=== PATIENT | male | born 1950 | race Two or more races ===

== ENCOUNTER 2018-07-30 06:04 | Day surgery (SDC) | payer MEDICARE ==
[~2018-07-30] VITALS: Ht 160 cm; Wt 66.2 kg
[~2018-07-30 06:04] MED LIST: AMLO5TAB7 PO; BACITRACIN 50,000 UNIT in IV NORMAL SALINE 500ML BAG 500 ML IRR ONE; BUPIVACAINE-EPI 0.5%-1:200000 50 ML VIAL. ONE; LOSA25TA5 PO
[2018-07-30] MEDS ORDERED: PROPOFOL 20 ML IV ONE (06:51)
[2018-07-30] MEDS ORDERED: fentaNYL PF VIAL 100 MCG/2 ML VIAL ONE ×3 (06:51→09:51)
[2018-07-30] MEDS ORDERED: PROCHLORPERAZINE 10 MG/2 ML VIAL. IV PRN (07:00)
[2018-07-30] MEDS ORDERED: IV RINGERS,LACTATED 1000ML 1,000 ML IV SCH (07:00)
[2018-07-30] MEDS ORDERED: MORPHINE SULFATE 2 MG/ML VIAL. IV PRN (07:00)
[2018-07-30] MEDS ORDERED: LIDOCAINE 1% PF 2 ML VIAL. ID PRN (07:00)
[2018-07-30] MEDS ORDERED: HYDROmorphone 2 MG/ML VIAL IV PRN (07:00)
[2018-07-30] MEDS ORDERED: fentaNYL PF VIAL 100 MCG/2 ML VIAL IV PRN (07:00)
[2018-07-30] MEDS ORDERED: ONDANSETRON PF 4 MG/2 ML VIAL. IV PRN (07:00)
[2018-07-30] MEDS ORDERED: SEVOFLURANE 31 TO 60 MINUTES. IH ONE (08:02)
[2018-07-30] MEDS ORDERED: DEXAMETHASONE SOD PHOS 20 MG/5 ML VIAL. ONE (08:02)
[2018-07-30] MEDS ORDERED: ONDANSETRON PF 4 MG/2 ML VIAL. ONE (08:04)
[2018-07-30] MEDS ORDERED: KETOROLAC 30 MG/ML INJ FOR OR. INJ ONE (09:14)
--- NOTE | 2018-07-30 09:50 | DISCH ---
DISCHARGE INSTRUCTIONS Condition on Discharge Condition on Discharge: Stable Activity After Discharge Activity Instructions for Disc: Other, see below (no lifting over 20 lbs X 4 weeks, no strenuous activity) Diet after Discharge Diet after Discharge: Regular Wound Incision Care Wound/Incision Care: Other, see below (keep dressing clean and dry X 72 hours, may then remove and shower) Follow-Up Follow up with: Dr Champagne in 2 weeks in office, call for appt [phone] BECCA CHAMPAGNE MD Jul 30, 2018 09:50
[2018-07-30] MEDS ORDERED: HYDR-971 PO (09:54)
--- NOTE | 2018-07-30 09:55 | PDOC4 ---
Operative Note Operative Note Operative Note: Preoperative Diagnosis: Right inguinal hernia Postoperative Diagnosis: Same Procedure: Right inguinal hernia repair with mesh Surgeon: Olman Anesthesia: Gen. EBL: 10 mL Specimen: Hernia sac Drains: None Complications: None Indication: The patient is a 68-year-old male who was referred due to a reducible right inguinal hernia. He was offered surgical repair with use of mesh. The details and risks of surgery were discussed. The risks include bleeding, infection, recurrence, pain, anesthetic risk, potential need for additional surgery or procedure. He understands and would like to proceed. Description: The patient was taken the operating room and placed supine on the operating table. Gen. anesthesia was performed. The right groin was shaved and prepped with ChloraPrep and draped in a standard surgical manner. An incision was made in the skin lines of the right groin with a scalpel. Cautery dissection was carried to the external oblique aponeurosis. The aponeurosis was opened down to the external ring. The contents of the inguinal canal were digitally mobilized and encircled with a Starr drain. The patient had a large indirect hernia sac. The sac was mobilized from the surrounding cord structures. The vas deferens and other cord structures were identified and preserved. The hernia sac was fully freed down to its base. I did elect to excise most of the redundant sac and it was suture ligated near its neck. The excised hernia sac was sent as a specimen. The neck of the sac was inverted and the defect filled with a large Phasix plug. The plug was sutured into position with 2-0 Vicryl. The entire inguinal floor was then reinforced with a keyhole Prolene mesh patch. The mesh was trimmed and tailored to provide full coverage of the inguinal floor. The mesh was sutured into position with interrupted 2-0 Vicryl's securing it to the internal oblique muscle superiorly and the shelving edge of the inguinal ligament inferiorly. The cord structures passed between the tail of the mesh. The external oblique was then closed over the mesh with a running 2-0 Vicryl. Subcutaneous tissue was closed with 3-0 Vicryl sutures. The skin was approximated with 4-0 Monocryl. Incision was infiltrated with quarter percent Marcaine with epinephrine. Steri-Strips and a sterile dressing were applied. The patient tolerated the procedure well and was sent to the recovery room in stable condition area at the end of the case all counts were correct. BECCA CHAMPAGNE MD Jul 30, 2018 09:55
[2018-07-30] MEDS: fentaNYL PF VIAL 100 MCG/2 ML VIAL IV PRN ×2 (09:57→10:04)
[2018-07-30] MEDS ORDERED: HYDROcodone/APAP 5/325MG 1 TAB TABLET PO ONE (10:00)
[2018-07-30 10:45] VITALS: BP 160/83
--- NOTE | 2018-08-01 16:09 | PATHOLOGY ---
[facility] Accession Number: [id number] . 01 Material submitted: . HERNIA SAC . 01 Clinician provided ICD-10: K40.90 . 01 Clinical history: . Right inguinal hernia . 02 Diagnosis: "Hernia sac", herniorrhaphy: - Hernia sac. (SKM:marium; 08/01/2018) QMS/08/01/2018 . 02 Electronically signed: . Vipin Brito MD, Pathologist NPI- [id number] . 01 Gross description: . The specimen is received in formalin, labeled "Alexis Pulido and hernia sac", is a disrupted suarez-white to red-pink, hemorrhagic, membranous tissue, 7.5 x 4.5 cm with an average 0.1 cm wall. No discrete nodules are masses identified. Denier Control Operator section is submitted in A1. ([facility]; 07/30/2018) SHS/SHS . 02 Pathologist provided ICD-10: K40.90 . 02 CPT . 624290 Specimen Comment: A courtesy copy of this report has been sent to Specimen Comment: [phone], . Specimen Comment: Report sent to and Performed at: 01 [facility] [address], [place], [place] [id number] MD Dakota Mccarty MD Phone: [phone] Performed at: 02 [facility] [address] [place], [place] [id number] MD Dequan Miller MD Phone: [phone]
== END 2018-07-30 11:20 | disposition home or self-care (01) ==
LOC: SURG 06:04
PROVIDERS: ATTEND Surgery
DX: K40.90 Unilateral inguinal hernia, without obstruction or gangrene, not specified as recurrent (principal); I10 Essential (primary) hypertension; Z72.89 Other problems related to lifestyle; Z79.899 Other long term (current) drug therapy
CPT/HCPCS: 49505; 88302; A7015; C1781; J0690; J1100; J1885; J2405; J2704; J3010; J7120; J3490; J7040

== ENCOUNTER → 2019-10-07 | Day surgery (SDC) | payer MEDICARE, MEDICAID ==
[~2019-10-07] MED LIST changes: +AMLO5TAB10 PO; -AMLO5TAB7 PO; +APIX5TAB PO; +ATOR20TA58 PO; -BACITRACIN 50,000 UNIT in IV NORMAL SALINE 500ML BAG 500 ML IRR ONE; -BUPIVACAINE-EPI 0.5%-1:200000 50 ML VIAL. ONE; +HYDR-3164 PO; +IV RINGERS,LACTATED 1000ML 1,000 ML IV ONE; +LIDOCAINE 2% PF 5 ML VIAL. ONE; -LOSA25TA5 PO; +LOSA25TA54 PO; +METO25TA4 PO; +PROPOFOL 40 ML IV ONE
--- NOTE | 2019-10-07 09:29 | EKG ---
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
[2019-10-07 09:40] VITALS: BP 137/76
== END ==
LOC: ENDOS 07:38
PROVIDERS: ATTEND Internal Medicine Gastroenterology
DX: R19.5 Other fecal abnormalities (principal); K64.0 First degree hemorrhoids; I10 Essential (primary) hypertension; E78.00 Pure hypercholesterolemia, unspecified; F15.90 Other stimulant use, unspecified, uncomplicated; Z87.891 Personal history of nicotine dependence; Z72.89 Other problems related to lifestyle
CPT/HCPCS: 45378; J2001; J2704; 93005

== ENCOUNTER → 2019-12-09 | Outpatient (CLI) | payer MEDICARE, MEDICAID ==
[2019-10-08 15:00] VITALS: BP 115/78
[~2019-12-09] MED LIST changes: -IV RINGERS,LACTATED 1000ML 1,000 ML IV ONE; -LIDOCAINE 2% PF 5 ML VIAL. ONE; -PROPOFOL 40 ML IV ONE; +REGADENOSON 0.4 MG/5 ML DISP.SYRIN. IV ONE
--- NOTE | 2019-12-09 11:55 | RAD ---
MR#: [id number] Date of Study: 12/09/2019 Ordering Physician: ILEANA OWEN Referring Physician: TONYA VAZQUEZ Tech: RT Ray Veliz) (N) APPROVED REPORT Test Type: Pharmacological Stress Nurse/Tech: Rupa Lackey RN Test Indications: Atrial Fibrillation Cardiac History: Hypertension, Afib Medications: See Electronic Medical Record Medical History: See Electronic Medical Record Resting ECG: Afib Resting Heart Rate: 68 bpm Resting Blood Pressure: 150/76mmHg Pretest Chest Pain: No chest pain Nurse/Tech Notes S1S2, Lungs CTA Consent: The procedure was explained to the patient in lay terms. Informed consent was witnessed. Mark eout was entered into [employer]. History and Stress Test performed by RT Ray Veliz) (N) Pharm. Details Pharmacologic stress testing was performed using 0.4mg per 5ml of regadenoson given intravenously ove r 7-10 seconds. Stress Symptoms Dyspnea POST EXERCISE Reason for Termination: Infusion complete Max HR: 94 bpm Max Blood Pressure: 138/75mmHg Blood Pressure response to exercise: Normal blood pressure response during stress. Heart Rate response to exercise: WNL Chest Pain: No. Arrhythmia: No. ST Change: No. INTERPRETATION Stress EKG Conclusion: Baseline EKG showed atrial fibrillation. No ischemic changes at peak stress. No other arrhythmias. Imaging Protocol IMAGE PROTOCOL: Rest Tc-99m/stress Tc-99m 1 day Rest: Stress: Viability: Radiopharm.Tc99m SbtwhfagyFk06x Sestamibi Dose10.2mCi 33mCi Duration 15min. 10min. Img Date 12/09/2019 12/09/2019 Inj-Img [id number]. 60min. Rest Admin Site:IV - Left AntecubitalAdministrator:RT Ray Veliz)(N) Stress Admin Site: IV - Left AntecubitalAdministrator: RT Ray Veliz)(N) STRESS DATA End Diast. Vol.92.0mlAv. Heart Rate74.0bpm End Syst. Vol.24.0mlCO Index BSA0.0L/min Myocardial Soeu350.0gEject. Gmssufaz59.0% Stress Rates Pk. Fill Rate3.66EDV/secLVtime Pk. Fill 230.67msec Pk. Empty Rate4.50ESV/secLVtime Pk. Vzfki032.99msec /3 Pk. Fill1.54EDV/sec Stress Scores Regional WT0.00Summed WT1.00 Regional WM0.00Summed WM0.00 Study quality was good. Left Ventricular size was Normal at Rest and Stress. Lung uptake was . Left Ventricular ejection fraction is 74%. The rest and stress images show normal perfusion, normal contraction and thickening. LV Perf. Quant 17 Seg. SSS0.00 17 Seg. SRS1.00 17 Seg. SDS0.00 Stress Defect Extent (% LAD)0.00Rest Defect Extent (% LAD)13.80Rev. Defect Extent (% LAD)0.00 Stress Defect Extent (% LCX) 0.00Rest Defect Extent (% LCX)0.00Rev. Defect Extent (% LCX)0.00 Stress Defect Extent (% RCA)0.00Rest Defect Extent (% RCA)0.00Rev. Defect Extent (% RCA)0.00 Stress Defect Extent (% YESSICA)0.00Rest Defect Extent (% YESSICA)4.80Rev. Defect Extent (% YESSICA)0.00 Conclusion 1. Regadenoson cardioisotope stress test did not show any evidence of ischemia or infarct. 2. Normal left ventricular systolic function with ejection fraction calculated at 74%. 3. Low risk for cardiac events. Signed by : Ileana Owen, Electronically Approved : 12/09/2019 11:54:32
== END | disposition home or self-care (01) ==
LOC: NM 08:20
PROVIDERS: ATTEND Internal Medicine Cardiovascular Disease
DX: I48.19 Other persistent atrial fibrillation (principal); I10 Essential (primary) hypertension
CPT/HCPCS: 78452; 93017; A9500; J2785

== ENCOUNTER → 2020-04-22 | Outpatient (CLI) | payer MEDICARE, MEDICAID ==
[2019-10-08 15:00] VITALS: BP 115/78
[~2020-04-22] MED LIST changes: -REGADENOSON 0.4 MG/5 ML DISP.SYRIN. IV ONE
== END ==
LOC: SURGPAT 14:48
PROVIDERS: ATTEND Internal Medicine Cardiovascular Disease
DX: Z01.818 Encounter for other preprocedural examination (principal); Z11.59 Encounter for screening for other viral diseases; I48.91 Unspecified atrial fibrillation
CPT/HCPCS: 36415; U0003

== ENCOUNTER 2020-04-27 09:49 | Day surgery (SDC) | payer MEDICARE, MEDICAID ==
[~2020-04-27 09:49] MED LIST changes: +HYDROmorphone 2 MG/ML VIAL IVP PRN; +IV RINGERS,LACTATED 1000ML 1,000 ML IV SCH; +LIDOCAINE 1% PF 2 ML VIAL. ID PRN; +MORPHINE SULFATE 2 MG/ML VIAL. IVP PRN; +ONDANSETRON PF 4 MG/2 ML VIAL. IVP PRN; +PROCHLORPERAZINE 10 MG/2 ML VIAL. IVP PRN; +fentaNYL PF VIAL 100 MCG/2 ML VIAL IVP PRN
[2020-04-27] MEDS ORDERED: BENZOCAINE ONE 20% MUCOSAL SPRAY. (09:50)
[2020-04-27] MEDS ORDERED: LIDOCAINE 2% TOPICAL JELLY 30GM TUBE. TP ONE ×2 (09:50→10:00)
[2020-04-27] MEDS ORDERED: LIDOCAINE 2% VISCOUS 15 ML SOLUTION. SWSW ONE (10:00)
[2020-04-27] MEDS ORDERED: BENZOCAINE ONE 20% MUCOSAL SPRAY. MM (10:00)
--- NOTE | 2020-04-27 10:17 | EKG ---
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 NONSPECIFIC ST-T WAVE CHANGES. Electronically Signed On 04-29-2020 16:25:16 CDT by Jose David Parker
[2020-04-27 10:29] LABS: BASO # 0.1 x10^3/uL (0.0-0.2); BASO % 1 % (0-3); EOS # 0.2 x10^3/uL (0.0-0.7); EOS % 4 % (0-3); HEMATOCRIT 42.4 % (39.0-53.0); HEMOGLOBIN 14.5 g/dL (13.0-17.5); LYMPH # 1.7 x10^3/uL (1.0-4.8); LYMPH % 38 % (24-48); MEAN CORPUSCULAR HEMOGLOBIN 31 pg (25-35); MEAN CORPUSCULAR HGB CONC 34 g/dL (31-37); MEAN CORPUSCULAR VOLUME 90 fL (79-100); MONO # 0.4 x10^3/uL (0.0-1.1); MONO % 9 % (0-9); NEUT # 2.2 x10^3/uL (1.8-7.7); NEUT % 49 % (31-73); PLATELET COUNT 261 x10^3/uL (140-400); RED BLOOD COUNT 4.72 x10^6/uL (4.30-5.70); RED CELL DISTRIBUTION WIDTH 13.8 % (11.5-14.5); WHITE BLOOD COUNT 4.6 x10^3/uL (4.0-11.0)
[2020-04-27 10:33] LABS: CALCIUM 8.8 mg/dL (8.5-10.1); CREATININE 1.1 mg/dL (0.7-1.3); GFR 66.4; POTASSIUM 4.3 mmol/L (3.5-5.1)
[2020-04-27 10:37] LABS: PROTHROMBIN TIME PATIENT 14.6 SEC (11.7-14.0)
--- NOTE | 2020-04-27 11:27 | EKG ---
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
[2020-04-27 11:40] VITALS: BP 127/73
--- NOTE | 2020-04-27 17:07 | PDOC4 ---
Procedure Note Procedure: External cardioversion Indications: Atrial fibrillation Complications: None Procedural Details: And informed consent was obtained from patient. Anesthesiology team administered intravenous propofol for deep sedation. Patient was then given 200 J of synchronized biphasic DC current with successful conversion of rhythm from atrial fibrillation to sinus rhythm. He was hemodynamically stable without any neurological deficits at the end of procedure. He tolerated the procedure well. Conclusions: Successful cardioversion of atrial fibrillation to sinus rhythm ILEANA OWEN MD Apr 27, 2020 17:07
== END 2020-04-27 11:49 | disposition home or self-care (01) ==
LOC: SURG 09:49
PROVIDERS: ATTEND Internal Medicine Cardiovascular Disease
DX: I48.91 Unspecified atrial fibrillation (principal)
CPT/HCPCS: 36415; 80048; 85025; 85610; 92960; 93005

== ENCOUNTER 2020-04-29 20:33 | Inpatient (IN) | payer MEDICARE, MEDICAID ==
[~2020-04-29] VITALS: Ht 167.6 cm; Wt 95.0 kg
[~2020-04-29 20:33] MED LIST changes: -HYDROmorphone 2 MG/ML VIAL IVP PRN; -IV RINGERS,LACTATED 1000ML 1,000 ML IV SCH; -LIDOCAINE 1% PF 2 ML VIAL. ID PRN; -MORPHINE SULFATE 2 MG/ML VIAL. IVP PRN; -ONDANSETRON PF 4 MG/2 ML VIAL. IVP PRN; -PROCHLORPERAZINE 10 MG/2 ML VIAL. IVP PRN; -fentaNYL PF VIAL 100 MCG/2 ML VIAL IVP PRN
[2020-04-29 20:54] LABS: BASO # 0.1 x10^3/uL (0.0-0.2); BASO % 1 % (0-3); EOS # 0.1 x10^3/uL (0.0-0.7); EOS % 2 % (0-3); HEMATOCRIT 40.7 % (39.0-53.0); LYMPH % 34 % (24-48); MEAN CORPUSCULAR HEMOGLOBIN 30 pg (25-35); MEAN CORPUSCULAR HGB CONC 34 g/dL (31-37); MEAN CORPUSCULAR VOLUME 89 fL (79-100); MONO # 0.6 x10^3/uL (0.0-1.1); MONO % 10 % (0-9); NEUT # 3.2 x10^3/uL (1.8-7.7); NEUT % 53 % (31-73); PLATELET COUNT 270 x10^3/uL (140-400); RED BLOOD COUNT 4.59 x10^6/uL (4.30-5.70); RED CELL DISTRIBUTION WIDTH 13.4 % (11.5-14.5)
[2020-04-29 21:04] LABS: CALCIUM 8.7 mg/dL (8.5-10.1); CREATININE 1.2 mg/dL (0.7-1.3); POTASSIUM 4.1 mmol/L (3.5-5.1)
[2020-04-29 21:10] LABS: ALBUMIN 3.9 g/dL (3.4-5.0); ALBUMIN/GLOBULIN RATIO 1.1 (1.0-1.7); MAGNESIUM 2.1 mg/dL (1.8-2.4); TOTAL BILIRUBIN 0.5 mg/dL (0.2-1.0); TOTAL PROTEIN 7.4 g/dL (6.4-8.2)
[2020-04-29 21:28] LABS: BILIRUBIN,URINE NEGATIVE (NEG); CLARITY,URINE CLEAR; COLOR,URINE YELLOW; NITRITE,URINE NEGATIVE (NEG); PH,URINE 6.5 (<5.0-8.0); PROTEIN,URINE NEGATIVE (NEG-TRACE)
[2020-04-29 21:34] LABS: BACTERIA,URINE 0 /HPF (0-FEW); WBC,URINE 0 /HPF (0-4)
--- NOTE | 2020-04-29 21:35 | RAD ---
Exam: Chest one view INDICATION: Dizziness TECHNIQUE: Frontal view of the chest Comparisons: None FINDINGS: The cardiomediastinal silhouette and pulmonary vessels are within normal limits. The lung and pleural spaces are clear. IMPRESSION: No acute cardiopulmonary process. Electronically signed by: Courtney Chau MD (04/29/2020 9:32 PM) [id number]
--- NOTE | 2020-04-29 21:46 | RAD ---
Exam: CT head INDICATION: Ataxic gait, left-sided weakness TECHNIQUE: Sequential axial images through the head were obtained without the administration of IV contrast. Comparisons: None FINDINGS: No focal parenchymal lesion or hemorrhage is identified. There is no midline shift or sulcal effacement. No acute vascular territory infarction is identified. Haas-white distinction is preserved. The ventricular system is within normal limits without compression hydrocephalus. The basal cisterns are well maintained. The visualized portions of the paranasal sinuses and mastoid air cells are well-pneumatized. No acute fractures. IMPRESSION: No acute intracranial abnormality. Exposure: One or more of the following in the visualized dose reduction techniques were utilized for this examination: 1. Automated exposure control 2. Adjustment of the MA and/or KV according to patient size Use of iterative of reconstructive technique Electronically signed by: Courtney Chau MD (04/29/2020 9:43 PM) [id number]
[2020-04-29] MEDS ORDERED: IOHEXOL 350 MG/ML 100 ML VIAL. IV ONE (22:30)
[2020-04-29] MEDS ORDERED: CONTRAST GIVEN. MC PRN (22:30)
--- NOTE | 2020-04-29 22:30 | PHYS DOC ---
Past Medical History Past Medical History: A-Fib, High Cholesterol, Hypertension Past Surgical History: Other Additional Past Surgical Histo: hernia Smoking Status: Never Smoker Alcohol Use: Occasionally Drug Use: None General Adult EDM: Chief Complaint: WEAKNESS/GENERALIZED HPI: HPI: Patient is a 70 year old male with reported left leg weakness that started at about 3 PM today. [facility] and was discharged home at about noon. Patient was seen there for shortness of breath and headache. Patient continues to complain of headache that he rates at a 4 out of 10. Patient also indicates that he has tingling in his left arm and leg. He denies any chest pain or shortness of breath. Patient has no speech deficits. [] Review of Systems: Review of Systems: Constitutional: Denies fever or chills. [] Respiratory: Denies cough or shortness of breath. [] Cardiovascular: Denies chest pain or edema. [] Integument: Denies rash. [] Neurologic: Denies headache but complains of weakness in the left leg. [] Heart Score: Risk Factors: Risk Factors: DM, Current or recent (<one month) smoker, HTN, HLP, family history of CAD, obesity. Risk Scores: Score 0 - 3: 2.5% MACE over next 6 weeks - Discharge Home Score 4 - 6: 20.3% MACE over next 6 weeks - Admit for Clinical Observation Score 7 - 10: 72.7% MACE over next 6 weeks - Early Invasive Strategies Current Medications: Current Medications Medications (Trade) Dose Ordered Sig/Michelle Start Time Stop Time Status Last Admin Dose Admin Info (CONTRAST GIVEN -- Rx MONITORING) 1 each PRN DAILY PRN 04/29/20 22:30 05/01/20 22:29 Iohexol (Omnipaque 350 Mg/ml) 70 ml 1X ONCE 04/29/20 22:30 04/29/20 22:31 04/29/20 22:23 70 ML Allergies: Allergies: Allergies Coded Allergies Type Severity Reaction Last Updated Verified No Known Drug Allergies 04/27/20 No Physical Exam: PE: Constitutional: Well developed, well nourished, no acute distress, non-toxic appearance. [] HENT: Normocephalic, atraumatic, bilateral external ears normal, oropharynx moist, no oral exudates, nose normal. [] Eyes: PERRLA, EOMI, conjunctiva normal, no discharge. [] Neck: Normal range of motion, no tenderness, supple, no stridor. [] Cardiovascular: Regular rate and rhythm [] Lungs & Thorax: Bilateral breath sounds clear to auscultation [] Abdomen: Bowel sounds normal, soft, no tenderness. [] Skin: Warm, dry, no erythema, no rash. [] Extremities: No tenderness, no cyanosis, no clubbing, ROM intact, no edema. [] Neurologic: Alert and oriented X 3, normal motor function, with mild sensory loss in left arm and leg. [] Current Patient Data: Labs: Laboratory Tests Test 04/29/20 20:45 04/29/20 21:20 White Blood Count 6.0 x10^3/uL (4.0-11.0) Red Blood Count 4.59 x10^6/uL (4.30-5.70) Hemoglobin 14.0 g/dL (13.0-17.5) Hematocrit 40.7 % (39.0-53.0) Mean Corpuscular Volume 89 fL (79-100) Mean Corpuscular Hemoglobin 30 pg (25-35) Mean Corpuscular Hemoglobin Concent 34 g/dL (31-37) Red Cell Distribution Width 13.4 % (11.5-14.5) Platelet Count 270 x10^3/uL (140-400) Neutrophils (%) (Auto) 53 % (31-73) Lymphocytes (%) (Auto) 34 % (24-48) Monocytes (%) (Auto) 10 % (0-9) H Eosinophils (%) (Auto) 2 % (0-3) Basophils (%) (Auto) 1 % (0-3) Neutrophils # (Auto) 3.2 x10^3/uL (1.8-7.7) Lymphocytes # (Auto) 2.0 x10^3/uL (1.0-4.8) Monocytes # (Auto) 0.6 x10^3/uL (0.0-1.1) Eosinophils # (Auto) 0.1 x10^3/uL (0.0-0.7) Basophils # (Auto) 0.1 x10^3/uL (0.0-0.2) Sodium Level 139 mmol/L (136-145) Potassium Level 4.1 mmol/L (3.5-5.1) Chloride Level 103 mmol/L (98-107) Carbon Dioxide Level 27 mmol/L (21-32) Anion Gap 9 (6-14) Blood Urea Nitrogen 12 mg/dL (8-26) Creatinine 1.2 mg/dL (0.7-1.3) Estimated GFR (Cockcroft-Gault) 60.0 BUN/Creatinine Ratio 10 (6-20) Glucose Level 83 mg/dL (70-99) Calcium Level 8.7 mg/dL (8.5-10.1) Magnesium Level 2.1 mg/dL (1.8-2.4) Total Bilirubin 0.5 mg/dL (0.2-1.0) Aspartate Amino Transferase (AST) 19 U/L (15-37) Alanine Aminotransferase (ALT) 23 U/L (16-63) Alkaline Phosphatase 84 U/L (46-116) Troponin I Quantitative < 0.017 ng/mL (0.000-0.055) Total Protein 7.4 g/dL (6.4-8.2) Albumin 3.9 g/dL (3.4-5.0) Albumin/Globulin Ratio 1.1 (1.0-1.7) Lipase 185 U/L (73-393) Urine Collection Type Unknown Urine Color Yellow Urine Clarity Clear Urine pH 6.5 (<5.0-8.0) Urine Specific [place] 1.010 (1.000-1.030) Urine Protein Negative mg/dL (NEG-TRACE) Urine Glucose (UA) Negative mg/dL (NEG) Urine Ketones (Stick) Negative mg/dL (NEG) Urine Blood Negative (NEG) Urine Nitrite Negative (NEG) Urine Bilirubin Negative (NEG) Urine Urobilinogen Dipstick 1.0 mg/dL (0.2 mg/dL) Urine Leukocyte Esterase Negative (NEG) Urine RBC 1-2 /HPF (0-2) Urine WBC 0 /HPF (0-4) Urine Bacteria 0 /HPF (0-FEW) Laboratory Tests 04/29/20 20:45 Laboratory Tests 04/29/20 20:45 Vital Signs: Vital Signs Date Time Temp Pulse Resp B/P (MAP) Pulse Ox O2 Delivery O2 Flow Rate FiO2 04/29/20 21:28 56 16 98 04/29/20 20:51 98.2 155/66 (95) Room Air 98.2 EKG: EKG: EKG demonstrates normal sinus rhythm with rate of 61. [] Radiology/Procedures: Radiology/Procedures: [] Impression: PROCEDURE: CT HEAD WO CONTRAST Exam: CT head INDICATION: Ataxic gait, left-sided weakness TECHNIQUE: Sequential axial images through the head were obtained without the administration of IV contrast. Comparisons: None FINDINGS: No focal parenchymal lesion or hemorrhage is identified. There is no midline shift or sulcal effacement. No acute vascular territory infarction is identified. Haas-white distinction is preserved. The ventricular system is within normal limits without compression hydrocephalus. The basal cisterns are well maintained. The visualized portions of the paranasal sinuses and mastoid air cells are well-pneumatized. No acute fractures. IMPRESSION: No acute intracranial abnormality. Exposure: One or more of the following in the visualized dose reduction techniques were utilized for this examination: 1. Automated exposure control 2. Adjustment of the MA and/or KV according to patient size Use of iterative of reconstructive technique Electronically signed by: Courtney Chau MD (04/29/2020 9:43 PM) [id number] Course & Med Decision Making: Course & Med Decision Making Pertinent Labs and Imaging studies reviewed. (See chart for details) [] Dragon Disclaimer: Dragon Disclaimer: This electronic medical record was generated, in whole or in part, using a voice recognition dictation system. Departure Departure Impression: Primary Impression: CVA (cerebral vascular accident) Qualified Codes: I63.531 - Cerebral infarction due to unspecified occlusion or stenosis of right posterior cerebral artery Disposition: ADMITTED INPATIENT Admitting Physician: HIMAnge Condition: GOOD Referrals: FREDERIC WITT (PCP) Justicifation of Admission Dx: Justifications for Admission: Justification of Admission Dx: Yes Stroke - Ischemic: Stroke-Ischemic PRINCE WATERS Jr. DO Apr 29, 2020 22:30
--- NOTE | 2020-04-29 22:59 | RAD ---
STUDY: CT angiography of the head and neck INDICATION: Cerebrovascular accident. COMPARISON: Same day CT head without contrast. TECHNIQUE: Axial CT imaging of the head and neck utilizing angiography protocol and performed after the intravenous administration of 70 cc Omnipaque 350 contrast. Multiplanar reformats and 3D MIP acquisitions were obtained. Encountered areas of stenosis are measured per NASCET criteria. One or more of the following individualized dose reduction techniques were utilized for this examination: 1. Automated exposure control 2. Adjustment of the mA and/or kV according to patient size 3. Use of iterative reconstruction technique. FINDINGS: CTA NECK: Arch/Proximal Great Vessels: Patent. Carotid Bifurcation/Cervical ICA: Mostly noncalcified atheromatous plaque at the proximal left ICA but there is no flow-limiting stenosis or dissection bilaterally through the skull base. Vertebral Arteries: The extra cranial left vertebral artery is dominant. No stenosis or dissection throughout the neck. CTA HEAD: Posterior Circulation: The right intracranial vertebral artery functionally terminates as the PICA with only a thin continuation of the vertebral artery to the basilar origin. The majority of the basilar artery flow is provided by the dominant left vertebral artery which is widely patent. The adequately assessed vertebral and basilar artery branch vessels are patent. 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 There is return of opacification over a length of approximately 6 mm. No flow-limiting stenosis or branch vessel occlusion throughout the left posterior cerebral artery. Anterior Circulation: Patent intracranial internal carotid arteries. No branch vessel occlusion seen throughout either anterior or middle cerebral artery. Veins: Patent dural sinuses. MISCELLANEOUS: Emphysematous changes of the lungs. Scattered cervical spine degenerative changes. Several missing teeth. 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 IMPRESSION: CT Angio Neck: 1. No flow-limiting stenosis or dissection involving the extracranial carotid or vertebral arteries. 2. Emphysematous changes of the lungs. CT Angio Head: 1. 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 There is return of opacification within the P3 segment after approximately 6 mm. Eventual MRI would be able to assess for any resultant infarct. No branch vessel occlusion or flow-limiting stenosis seen elsewhere throughout the intracranial circulation. 2. 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 FOR INTERNAL CODING PURPOSES RESULT CODE: (C) The findings were discussed with the care team by telephone on 04/29/2020 at 2255 hours. Electronically signed by: KALIN MARISCAL MD (04/29/2020 10:56 PM) [id number]
[2020-04-29] MEDS ORDERED: ASPIRIN 325 MG TABLET PO ONE (23:30)
[2020-04-29] MEDS ORDERED: ONDANSETRON PF 4 MG/2 ML VIAL. IV PRN (23:45)
[2020-04-30] MEDS: IV NORMAL SALINE 1000ML BAG 1,000 ML IV SCH ×3 (00:13→12:10)
[2020-04-30] MEDS: ACETAMINOPHEN 325 MG TABLET. PO PRN ×3 (00:14→19:30)
[2020-04-30 03:15] VITALS: BP 147/81
[2020-04-30 04:34] LABS: BASO % 1 % (0-3); EOS # 0.1 x10^3/uL (0.0-0.7); EOS % 2 % (0-3); HEMATOCRIT 39.7 % (39.0-53.0); HEMOGLOBIN 13.6 g/dL (13.0-17.5); LYMPH # 1.4 x10^3/uL (1.0-4.8); LYMPH % 27 % (24-48); MEAN CORPUSCULAR HEMOGLOBIN 30 pg (25-35); MEAN CORPUSCULAR HGB CONC 34 g/dL (31-37); MEAN CORPUSCULAR VOLUME 89 fL (79-100); MONO # 0.5 x10^3/uL (0.0-1.1); MONO % 9 % (0-9); NEUT # 3.2 x10^3/uL (1.8-7.7); NEUT % 61 % (31-73); PLATELET COUNT 246 x10^3/uL (140-400); RED BLOOD COUNT 4.46 x10^6/uL (4.30-5.70); RED CELL DISTRIBUTION WIDTH 13.9 % (11.5-14.5); WHITE BLOOD COUNT 5.3 x10^3/uL (4.0-11.0)
[2020-04-30 04:57] LABS: CALCIUM 8.4 mg/dL (8.5-10.1); CREATININE 1.1 mg/dL (0.7-1.3); GFR 66.4; POTASSIUM 3.3 mmol/L (3.5-5.1)
[2020-04-30 07:23] VITALS: BP 139/61
[2020-04-30 11:10] VITALS: BP 137/65
[2020-04-30] MEDS ORDERED: POTASSIUM CHLORIDE 20 MEQ TABLET.ER. PO ONE (12:15)
--- NOTE | 2020-04-30 12:22 | HP ---
ADMIT DATE: 04/30/2020 CHIEF COMPLAINT: Left leg weakness. HISTORY OF PRESENT ILLNESS: The patient is a pleasant 70-year-old male who does not speak Divehi. Basically, he presented to [facility] earlier yesterday with complaints of shortness of breath and a headache. I think they sent him home. Then, a few hours later, he came to our Emergency Room complaining of left leg weakness. Clinically, he seems to have had a stroke. The patient has now been admitted with consultation to Neurology. PAST MEDICAL HISTORY: Atrial fibrillation, hypertension, hyperlipidemia and hernia repair. ALLERGIES: None. FAMILY HISTORY: Diabetes. SOCIAL HISTORY: He does not drink, smoke or take drugs. MEDICATIONS: Reviewed, please refer to the MRAD. REVIEW OF SYSTEMS: GENERAL: No history of weight change, weakness or fevers. SKIN: No bruising, hair changes or rashes. EYES: No blurred, double or loss of vision. NOSE AND THROAT: No history of nosebleeds, hoarseness or sore throat. HEART: No history of palpitations, chest pain or shortness of breath on exertion. LUNGS: Denies cough, hemoptysis, wheezing or shortness of breath. GASTROINTESTINAL: Denies changes in appetite, nausea, vomiting, diarrhea or constipation. GENITOURINARY: No history of frequency, urgency, hesitancy or nocturia. NEUROLOGIC: Denies history of numbness, tingling, tremor or weakness. PSYCHIATRIC: No history of panic, anxiety or depression. ENDOCRINE: No history of heat or cold intolerance, polyuria or polydipsia. EXTREMITIES: Denies muscle weakness, joint pain, pain on walking or stiffness. PHYSICAL EXAMINATION: VITALS: Within normal limits and are stable. GENERAL: No apparent distress. Alert and oriented. HEENT: Normal cephalic atraumatic, external auditory canals are patent EYES: Extraocular muscles are intact, pupils are equally round and reactive to light and accommodation MUSCULOSKELETAL: Well developed, well nourished, good range of motion ENDOCRINE: No thyromegaly was palpated LYMPHATICS: No cervical chain or axillary nodes were noted HEMATOPOIETIC: No bruising NECK: Supple, no JVD, no thyromegaly was noted. LUNGS: Clear to auscultation in all lung ladd without rhonchi or wheezing. HEART: RRR, S1, S2 present. Peripheral pulses intact, no obvious murmurs were noted. ABDOMEN: Soft, nontender. Positive bowel sounds no organomegaly, normal bowel sounds. EXTREMITIES: Without any cyanosis, clubbing, or edema. Pedal pulses intact, Homans sign is negative. NEUROLOGIC: He has got some left leg weakness. PSYCHIATRIC: Normal affect, normal mood. Stable. SKIN: No ulcerations or rashes, good skin turgor, no jaundice. VASCULAR: Good capillary refill, neurovascular bundle appears to be intact. IMAGING: CT of the head did not show any acute changes. Chest x-ray did not show any acute disease. LABORATORY DATA: Hematology is normal. Electrolytes are normal other than a potassium of 3.3. Urinalysis negative. ASSESSMENT AND PLAN: Stroke symptoms with incidental finding of hypokalemia. The patient will be admitted. We will consult Neurology. Replace his potassium. IV fluids, PT, OT, home meds, DVT prophylaxis. Full code. SHAUN LEO DO DR: RICHAR/donovan JOB#: [id number] / [id number]
[2020-04-30 15:16] VITALS: BP 144/66
--- NOTE | 2020-04-30 15:25 | PDOC2 ---
NEUROLOGY CONSULT Date of Admission Date of Admission DATE: 04/30/20 TIME: 15:17 Reason for Consult Reason for Consult: Stroke symptoms Referring Physician Referring Physician: Dr. Mukherjee Source Source: Caregiver (Daughter), Chart review, Patient History of Present Illness History of Present Illness The patient is a 70-year-old right-handed male who developed a headache and dizziness yesterday afternoon. He went to [facility] emergency department where a CT of the head was negative. He then went home and started to have some ataxia and left-sided weakness and came to the [place] emergency department. I discussed the case with Dr. Figueroa, and we agreed the patient was not a candidate for alteplase. Patient did have CT angiogram, [facility] neurology did not think there was anything needed to do at their facility. Patient has a mild frontal headache now and thinks he is getting much better. There is no prior history of stroke, seizure, or head injury. He is on Eliquis for atrial fibrillation and just had a cardioversion on 04/27 with full cardiac work-up recently as well Past Medical History Cardiovascular: AFIB, HTN GI: Other (Hiatal hernia) Past Surgical History Past Surgical History: Hernia Repair Family History Family History: No pertinent hx Social History Social History , 1 beer per day, no tobacco, retired Current Medications Current Medications Current Medications Iohexol (Omnipaque 350 Mg/ml) 70 ml 1X ONCE IV Last administered on 04/29/20at 22:23; Start 04/29/20 at 22:30; Stop 04/29/20 at 22:31; Status DC Info (CONTRAST GIVEN -- Rx MONITORING) 1 each PRN DAILY PRN MC SEE COMMENTS; Start 04/29/20 at 22:30; Stop 05/01/20 at 22:29 Aspirin (Kaitlin Aspirin) 325 mg 1X ONCE PO Last administered on 04/29/20at 23:33; Start 04/29/20 at 23:30; Stop 04/29/20 at 23:31; Status DC Ondansetron HCl (Zofran) 4 mg PRN Q8HRS PRN IV NAUSEA/VOMITING; Start 04/29/20 at 23:45; Stop 04/30/20 at 23:44 Sodium Chloride 1,000 ml @ 100 mls/hr Q10H IV Last administered on 04/30/20at 12:10; Start 04/29/20 at 23:45; Stop 04/30/20 at 23:44 Acetaminophen (Tylenol) 650 mg PRN Q4HRS PRN PO FEVER > 100.3'F Last administered on 04/30/20at 15:12; Start 04/29/20 at 23:45; Stop 04/30/20 at 23:44 Potassium Chloride (Klor-Con) 40 meq 1X ONCE PO Last administered on 04/30/20at 12:36; Start 04/30/20 at 12:15; Stop 04/30/20 at 12:16; Status DC Apixaban (Eliquis) 5 mg BID PO ; Start 04/30/20 at 21:00 Active Scripts Active Eliquis (Apixaban) 5 Mg Tablet 5 Mg PO BID Metoprolol Tartrate 25 Mg Tablet 25 Mg PO BID Reported Amlodipine Besylate 5 Mg Tablet 5 Mg PO DAILY Losartan Potassium (Losartan Potassium) 25 Mg Tablet 25 Mg PO DAILY Atorvastatin Calcium 20 Mg Tablet 20 Mg PO DAILY Allergies Allergies: Coded Allergies: No Known Drug Allergies (Unverified , 04/27/20) ROS Review of System Negative for fever, chills, weight loss, shortness of breath, chest pain, indigestion, hematochezia, melena, and dysuria. Full 14-point review of systems is negative. Physical Exam Physical Examination General: Well-developed, well-nourished male in no acute distress HEENT: Normocephalic andatraumatic.Temporal arteriespulsatile and nontender. Neck: Supple without bruit, no meningismus Musculoskeletal: Stability:see neurologic. Gait exam:see neurologic. Tone:see neurologic.Strength:see neurologic. Neurological: Mental Status:intact, orientation, memory, attention span/concentration, language, fund of knowledge normal. Cranial Nerves:Pupils equal and reactive to light, extraocular movements areintact, visual ladd are full to confrontation. Facial sensation is normal. There is no facial asymmetry. Vestibulo-ocular reflex is intact. Palate elevates and tongue protrudes in midline. All other cranial related problems are negative except as mentioned before.Reflexes:2+ and symmetric with flexor plantar responses. Motor:5/5 strength with normal tone and bulk. Coordination:Finger-nose finger and [id number] testing are normal. Rapid alternating movements and fine finger movements are intact. Gait:A little ataxic. Sensory:Normal pinprick, vibration, light touch, proprioception. Vitals VITALS Vital Signs Date Time Temp Pulse Resp B/P (MAP) Pulse Ox O2 Delivery O2 Flow Rate FiO2 04/30/20 11:10 98.0 57 18 137/65 (89) 97 Room Air 98.0 Labs Labs Laboratory Tests Test 04/29/20 20:45 04/29/20 21:20 04/30/20 03:25 White Blood Count 6.0 x10^3/uL (4.0-11.0) 5.3 x10^3/uL (4.0-11.0) Red Blood Count 4.59 x10^6/uL (4.30-5.70) 4.46 x10^6/uL (4.30-5.70) Hemoglobin 14.0 g/dL (13.0-17.5) 13.6 g/dL (13.0-17.5) Hematocrit 40.7 % (39.0-53.0) 39.7 % (39.0-53.0) Mean Corpuscular Volume 89 fL (79-100) 89 fL (79-100) Mean Corpuscular Hemoglobin 30 pg (25-35) 30 pg (25-35) Mean Corpuscular Hemoglobin Concent 34 g/dL (31-37) 34 g/dL (31-37) Red Cell Distribution Width 13.4 % (11.5-14.5) 13.9 % (11.5-14.5) Platelet Count 270 x10^3/uL (140-400) 246 x10^3/uL (140-400) Neutrophils (%) (Auto) 53 % (31-73) 61 % (31-73) Lymphocytes (%) (Auto) 34 % (24-48) 27 % (24-48) Monocytes (%) (Auto) 10 % (0-9) 9 % (0-9) Eosinophils (%) (Auto) 2 % (0-3) 2 % (0-3) Basophils (%) (Auto) 1 % (0-3) 1 % (0-3) Neutrophils # (Auto) 3.2 x10^3/uL (1.8-7.7) 3.2 x10^3/uL (1.8-7.7) Lymphocytes # (Auto) 2.0 x10^3/uL (1.0-4.8) 1.4 x10^3/uL (1.0-4.8) Monocytes # (Auto) 0.6 x10^3/uL (0.0-1.1) 0.5 x10^3/uL (0.0-1.1) Eosinophils # (Auto) 0.1 x10^3/uL (0.0-0.7) 0.1 x10^3/uL (0.0-0.7) Basophils # (Auto) 0.1 x10^3/uL (0.0-0.2) 0.0 x10^3/uL (0.0-0.2) Sodium Level 139 mmol/L (136-145) 140 mmol/L (136-145) Potassium Level 4.1 mmol/L (3.5-5.1) 3.3 mmol/L (3.5-5.1) Chloride Level 103 mmol/L (98-107) 103 mmol/L (98-107) Carbon Dioxide Level 27 mmol/L (21-32) 26 mmol/L (21-32) Anion Gap 9 (6-14) 11 (6-14) Blood Urea Nitrogen 12 mg/dL (8-26) 10 mg/dL (8-26) Creatinine 1.2 mg/dL (0.7-1.3) 1.1 mg/dL (0.7-1.3) Estimated GFR (Cockcroft-Gault) 60.0 66.4 BUN/Creatinine Ratio 10 (6-20) Glucose Level 83 mg/dL (70-99) 95 mg/dL (70-99) Calcium Level 8.7 mg/dL (8.5-10.1) 8.4 mg/dL (8.5-10.1) Magnesium Level 2.1 mg/dL (1.8-2.4) Total Bilirubin 0.5 mg/dL (0.2-1.0) Aspartate Amino Transf (AST/SGOT) 19 U/L (15-37) Alanine Aminotransferase (ALT/SGPT) 23 U/L (16-63) Alkaline Phosphatase 84 U/L (46-116) Troponin I Quantitative < 0.017 ng/mL (0.000-0.055) Total Protein 7.4 g/dL (6.4-8.2) Albumin 3.9 g/dL (3.4-5.0) Albumin/Globulin Ratio 1.1 (1.0-1.7) Lipase 185 U/L (73-393) Urine Collection Type Unknown Urine Color Yellow Urine Clarity Clear Urine pH 6.5 (<5.0-8.0) Urine Specific [place] 1.010 (1.000-1.030) Urine Protein Negative mg/dL (NEG-TRACE) Urine Glucose (UA) Negative mg/dL (NEG) Urine Ketones (Stick) Negative mg/dL (NEG) Urine Blood Negative (NEG) Urine Nitrite Negative (NEG) Urine Bilirubin Negative (NEG) Urine Urobilinogen Dipstick 1.0 mg/dL (0.2 mg/dL) Urine Leukocyte Esterase Negative (NEG) Urine RBC 1-2 /HPF (0-2) Urine WBC 0 /HPF (0-4) Urine Bacteria 0 /HPF (0-FEW) Laboratory Tests Test 04/29/20 20:45 04/29/20 21:20 04/30/20 03:25 White Blood Count 6.0 x10^3/uL (4.0-11.0) 5.3 x10^3/uL (4.0-11.0) Red Blood Count 4.59 x10^6/uL (4.30-5.70) 4.46 x10^6/uL (4.30-5.70) Hemoglobin 14.0 g/dL (13.0-17.5) 13.6 g/dL (13.0-17.5) Hematocrit 40.7 % (39.0-53.0) 39.7 % (39.0-53.0) Mean Corpuscular Volume 89 fL (79-100) 89 fL (79-100) Mean Corpuscular Hemoglobin 30 pg (25-35) 30 pg (25-35) Mean Corpuscular Hemoglobin Concent 34 g/dL (31-37) 34 g/dL (31-37) Red Cell Distribution Width 13.4 % (11.5-14.5) 13.9 % (11.5-14.5) Platelet Count 270 x10^3/uL (140-400) 246 x10^3/uL (140-400) Neutrophils (%) (Auto) 53 % (31-73) 61 % (31-73) Lymphocytes (%) (Auto) 34 % (24-48) 27 % (24-48) Monocytes (%) (Auto) 10 % (0-9) 9 % (0-9) Eosinophils (%) (Auto) 2 % (0-3) 2 % (0-3) Basophils (%) (Auto) 1 % (0-3) 1 % (0-3) Neutrophils # (Auto) 3.2 x10^3/uL (1.8-7.7) 3.2 x10^3/uL (1.8-7.7) Lymphocytes # (Auto) 2.0 x10^3/uL (1.0-4.8) 1.4 x10^3/uL (1.0-4.8) Monocytes # (Auto) 0.6 x10^3/uL (0.0-1.1) 0.5 x10^3/uL (0.0-1.1) Eosinophils # (Auto) 0.1 x10^3/uL (0.0-0.7) 0.1 x10^3/uL (0.0-0.7) Basophils # (Auto) 0.1 x10^3/uL (0.0-0.2) 0.0 x10^3/uL (0.0-0.2) Sodium Level 139 mmol/L (136-145) 140 mmol/L (136-145) Potassium Level 4.1 mmol/L (3.5-5.1) 3.3 mmol/L (3.5-5.1) Chloride Level 103 mmol/L (98-107) 103 mmol/L (98-107) Carbon Dioxide Level 27 mmol/L (21-32) 26 mmol/L (21-32) Anion Gap 9 (6-14) 11 (6-14) Blood Urea Nitrogen 12 mg/dL (8-26) 10 mg/dL (8-26) Creatinine 1.2 mg/dL (0.7-1.3) 1.1 mg/dL (0.7-1.3) Estimated GFR (Cockcroft-Gault) 60.0 66.4 BUN/Creatinine Ratio 10 (6-20) Glucose Level 83 mg/dL (70-99) 95 mg/dL (70-99) Calcium Level 8.7 mg/dL (8.5-10.1) 8.4 mg/dL (8.5-10.1) Magnesium Level 2.1 mg/dL (1.8-2.4) Total Bilirubin 0.5 mg/dL (0.2-1.0) Aspartate Amino Transf (AST/SGOT) 19 U/L (15-37) Alanine Aminotransferase (ALT/SGPT) 23 U/L (16-63) Alkaline Phosphatase 84 U/L (46-116) Troponin I Quantitative < 0.017 ng/mL (0.000-0.055) Total Protein 7.4 g/dL (6.4-8.2) Albumin 3.9 g/dL (3.4-5.0) Albumin/Globulin Ratio 1.1 (1.0-1.7) Lipase 185 U/L (73-393) Urine Collection Type Unknown Urine Color Yellow Urine Clarity Clear Urine pH 6.5 (<5.0-8.0) Urine Specific [place] 1.010 (1.000-1.030) Urine Protein Negative mg/dL (NEG-TRACE) Urine Glucose (UA) Negative mg/dL (NEG) Urine Ketones (Stick) Negative mg/dL (NEG) Urine Blood Negative (NEG) Urine Nitrite Negative (NEG) Urine Bilirubin Negative (NEG) Urine Urobilinogen Dipstick 1.0 mg/dL (0.2 mg/dL) Urine Leukocyte Esterase Negative (NEG) Urine RBC 1-2 /HPF (0-2) Urine WBC 0 /HPF (0-4) Urine Bacteria 0 /HPF (0-FEW) Images Images CT head INDICATION: Ataxic gait, left-sided weakness TECHNIQUE: Sequential axial images through the head were obtained without the administration of IV contrast. Comparisons: None FINDINGS: No focal parenchymal lesion or hemorrhage is identified. There is no midline shift or sulcal effacement. No acute vascular territory infarction is identified. Haas-white distinction is preserved. The ventricular system is within normal limits without compression hydrocephalus. The basal cisterns are well maintained. The visualized portions of the paranasal sinuses and mastoid air cells are well-pneumatized. No acute fractures. IMPRESSION: No acute intracranial abnormality. CT angiography of the head and neck INDICATION: Cerebrovascular accident. COMPARISON: Same day CT head without contrast. TECHNIQUE: Axial CT imaging of the head and neck utilizing angiography protocol and performed after the intravenous administration of 70 cc Omnipaque 350 contrast. Multiplanar reformats and 3D MIP acquisitions were obtained. Encountered areas of stenosis are measured per NASCET criteria. One or more of the following individualized dose reduction techniques were utilized for this examination: 1. Automated exposure control 2. Adjustment of the mA and/or kV according to patient size 3. Use of iterative reconstruction technique. FINDINGS: CTA NECK: Arch/Proximal Great Vessels: Patent. Carotid Bifurcation/Cervical ICA: Mostly noncalcified atheromatous plaque at the proximal left ICA but there is no flow-limiting stenosis or dissection bilaterally through the skull base. Vertebral Arteries: The extra cranial left vertebral artery is dominant. No stenosis or dissection throughout the neck. CTA HEAD: Posterior Circulation: The right intracranial vertebral artery functionally terminates as the PICA with only a thin continuation of the vertebral artery to the basilar origin. The majority of the basilar artery flow is provided by the dominant left vertebral artery which is widely patent. The adequately assessed vertebral and basilar artery branch vessels are patent. 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 There is return of opacification over a length of approximately 6 mm. No flow-limiting stenosis or branch vessel occlusion throughout the left posterior cerebral artery. Anterior Circulation: Patent intracranial internal carotid arteries. No branch vessel occlusion seen throughout either anterior or middle cerebral artery. Veins: Patent dural sinuses. MISCELLANEOUS: Emphysematous changes of the lungs. Scattered cervical spine degenerative changes. Several missing teeth. 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 IMPRESSION: CT Angio Neck: 1. No flow-limiting stenosis or dissection involving the extracranial carotid or vertebral arteries. 2. Emphysematous changes of the lungs. CT Angio Head: 1. 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 There is return of opacification within the P3 segment after approximately 6 mm. Eventual MRI would be able to assess for any resultant infarct. No branch vessel occlusion or flow-limiting stenosis seen elsewhere throughout the intracranial circulation. 2. 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 Assessment/Plan Assessment/Plan Impression: Suspect small brainstem stroke with continued gait ataxia, but the left-sided weakness has resolved on my exam. 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 Recommendations: MRI of the brain Hold off on adding aspirin, continue Eliquis Continue statin He passed his bedside swallow evaluation, I will advance his diet. Observe 1 more night Rehabilitation modalities Hold off on repeat echocardiogram Fully discussed with family. Thank you for letting me help with the patient's care. ALYSSA ASTORGA MD Apr 30, 2020 15:25
[2020-04-30] MEDS ORDERED: ACETAMINOPHEN 650 MG SUPP.RECT. PR PRN (15:30)
[2020-04-30] MEDS ORDERED: ACETAMINOPHEN 325 MG TABLET. PO PRN (15:30)
[2020-04-30 19:25] VITALS: BP 166/69
[2020-04-30] MEDS: APIXABAN 5 MG TABLET. PO SCH (20:50)
[2020-04-30 23:04] VITALS: BP 157/66
[2020-05-01 03:45] VITALS: BP 158/70
[2020-05-01 05:15] LABS: BASO % 1 % (0-3); EOS # 0.1 x10^3/uL (0.0-0.7); EOS % 3 % (0-3); HEMATOCRIT 40.6 % (39.0-53.0); HEMOGLOBIN 13.9 g/dL (13.0-17.5); LYMPH # 1.4 x10^3/uL (1.0-4.8); LYMPH % 31 % (24-48); MEAN CORPUSCULAR HEMOGLOBIN 30 pg (25-35); MEAN CORPUSCULAR HGB CONC 34 g/dL (31-37); MEAN CORPUSCULAR VOLUME 89 fL (79-100); MONO # 0.4 x10^3/uL (0.0-1.1); MONO % 10 % (0-9); NEUT # 2.5 x10^3/uL (1.8-7.7); NEUT % 56 % (31-73); PLATELET COUNT 239 x10^3/uL (140-400); RED BLOOD COUNT 4.56 x10^6/uL (4.30-5.70); RED CELL DISTRIBUTION WIDTH 13.5 % (11.5-14.5); WHITE BLOOD COUNT 4.5 x10^3/uL (4.0-11.0)
[2020-05-01 05:38] LABS: CALCIUM 8.8 mg/dL (8.5-10.1); CREATININE 1.1 mg/dL (0.7-1.3); GFR 66.4; POTASSIUM 3.5 mmol/L (3.5-5.1)
[2020-05-01 06:21] LABS: CHOLESTEROL/HDL RATIO 2.7
[2020-05-01 07:00] VITALS: BP_SYST 134
[2020-05-01] MEDS: APIXABAN 5 MG TABLET. PO SCH (08:06)
[2020-05-01 11:00] VITALS: BP 134/59
--- NOTE | 2020-05-01 12:05 | PDOC ---
[facility] PROGRESS NOTE Chief Complaint Chief Complaint Small toi stroke that seems to be recovering Chronic anticoagulation Recent history of cardioversion of A. fib History of Present Illness History of Present Illness 05/01/2020 Patient seen and examined He is at his baseline We will go ahead and discharge if okay with neurology Discussed with RN Discussed with family Chart reviewed Vitals/I&O Vitals/I&O: Vital Signs Date Time Temp Pulse Resp B/P (MAP) Pulse Ox O2 Delivery O2 Flow Rate FiO2 05/01/20 08:00 Room Air 05/01/20 07:00 98.6 58 17 134/ 97 98.6 I & O 04/30/20 04/30/20 05/01/20 15:00 23:00 07:00 Intake Total 50 ml 270 ml 190 ml Output Total 450 ml 500 ml Balance -400 ml -230 ml 190 ml Physical Exam General: Alert, Oriented X3 Heart: Regular rate, Normal S1 Lungs: Clear Abdomen: Normal bowel sounds Extremities: No clubbing, No cyanosis Skin: No rashes, No breakdown Labs Labs: Laboratory Tests Test 05/01/20 03:45 White Blood Count 4.5 x10^3/uL (4.0-11.0) Red Blood Count 4.56 x10^6/uL (4.30-5.70) Hemoglobin 13.9 g/dL (13.0-17.5) Hematocrit 40.6 % (39.0-53.0) Mean Corpuscular Volume 89 fL (79-100) Mean Corpuscular Hemoglobin 30 pg (25-35) Mean Corpuscular Hemoglobin Concent 34 g/dL (31-37) Red Cell Distribution Width 13.5 % (11.5-14.5) Platelet Count 239 x10^3/uL (140-400) Neutrophils (%) (Auto) 56 % (31-73) Lymphocytes (%) (Auto) 31 % (24-48) Monocytes (%) (Auto) 10 % (0-9) Eosinophils (%) (Auto) 3 % (0-3) Basophils (%) (Auto) 1 % (0-3) Neutrophils # (Auto) 2.5 x10^3/uL (1.8-7.7) Lymphocytes # (Auto) 1.4 x10^3/uL (1.0-4.8) Monocytes # (Auto) 0.4 x10^3/uL (0.0-1.1) Eosinophils # (Auto) 0.1 x10^3/uL (0.0-0.7) Basophils # (Auto) 0.0 x10^3/uL (0.0-0.2) Sodium Level 139 mmol/L (136-145) Potassium Level 3.5 mmol/L (3.5-5.1) Chloride Level 103 mmol/L (98-107) Carbon Dioxide Level 24 mmol/L (21-32) Anion Gap 12 (6-14) Blood Urea Nitrogen 10 mg/dL (8-26) Creatinine 1.1 mg/dL (0.7-1.3) Estimated GFR (Cockcroft-Gault) 66.4 Glucose Level 82 mg/dL (70-99) Calcium Level 8.8 mg/dL (8.5-10.1) Triglycerides Level 94 mg/dL (0-150) Cholesterol Level 157 mg/dL (0-200) LDL Cholesterol, Calculated 79 mg/dL (0-100) VLDL Cholesterol, Calculated 19 mg/dL (0-40) Non-HDL Cholesterol Calculated 98 mg/dL (0-129) HDL Cholesterol 59 mg/dL (40-60) Cholesterol/HDL Ratio 2.7 Review of Systems Review of Systems: No complaints request discharge Assessment and Plan Assessmemt and Plan Problems Medical Problems: (1) CVA (cerebral vascular accident) Status: Acut Plan is to discharge if okay with neurology Comment Review of Relevant I have reviewed the following items lane (where applicable) has been applied. Medications: Current Medications Medications (Trade) Dose Ordered Sig/Michelle Route PRN Reason Start Time Stop Time Status Last Admin Dose Admin Potassium Chloride (Klor-Con) 40 meq 1X ONCE PO 04/30/20 12:15 04/30/20 12:16 DC 04/30/20 12:36 Apixaban (Eliquis) 5 mg BID PO 04/30/20 21:00 05/01/20 08:06 Acetaminophen (Tylenol) 650 mg PRN Q6HRS PRN PO TEMP > 100.4F 04/30/20 15:30 05/01/20 08:07 Justicifation of Admission Dx: Justifications for Admission: Justification of Admission Dx: Yes Stroke - Ischemic: Stroke-Ischemic SHAUN LEO III DO May 01, 2020 12:05
--- NOTE | 2020-05-01 12:14 | PDOC ---
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 Plan MRI of the brain Okay to discharge after brain MRI Hold off on adding aspirin, continue Eliquis, will make final decision after I see MRI, but combination of these 2 medications has more risks than benefits Continue statin, lipid profile favorable Hold off on repeat echocardiogram Fully discussed with family. Subjective No complaints Objective Vital Signs Date Time Temp Pulse Resp B/P (MAP) Pulse Ox O2 Delivery O2 Flow Rate FiO2 05/01/20 08:00 Room Air 05/01/20 07:00 98.6 58 17 134/ 97 98.6 Intake and Output 05/01/20 07:00 Intake Total 510 ml Output Total 950 ml Balance -440 ml Intake Oral 510 ml Output Urine Total 950 ml PHYSICAL EXAM Alert. Oriented to time, place and person. Speaks Romanian PERRL. EOMI. CN: no focal findings. Muscle tone: normal. Muscle strength: 5/5 DTR: 2+ Plantar reflex: Flexor Gait: Normal Sensory exam: no abnormal findings. No cerebellar signs elicited. Review of Relevant I have reviewed the following items lane (where applicable) has been applied. Labs Laboratory Tests Test 04/29/20 20:45 04/29/20 21:20 04/30/20 03:25 05/01/20 03:45 White Blood Count 6.0 x10^3/uL (4.0-11.0) 5.3 x10^3/uL (4.0-11.0) 4.5 x10^3/uL (4.0-11.0) Red Blood Count 4.59 x10^6/uL (4.30-5.70) 4.46 x10^6/uL (4.30-5.70) 4.56 x10^6/uL (4.30-5.70) Hemoglobin 14.0 g/dL (13.0-17.5) 13.6 g/dL (13.0-17.5) 13.9 g/dL (13.0-17.5) Hematocrit 40.7 % (39.0-53.0) 39.7 % (39.0-53.0) 40.6 % (39.0-53.0) Mean Corpuscular Volume 89 fL (79-100) 89 fL (79-100) 89 fL (79-100) Mean Corpuscular Hemoglobin 30 pg (25-35) 30 pg (25-35) 30 pg (25-35) Mean Corpuscular Hemoglobin Concent 34 g/dL (31-37) 34 g/dL (31-37) 34 g/dL (31-37) Red Cell Distribution Width 13.4 % (11.5-14.5) 13.9 % (11.5-14.5) 13.5 % (11.5-14.5) Platelet Count 270 x10^3/uL (140-400) 246 x10^3/uL (140-400) 239 x10^3/uL (140-400) Neutrophils (%) (Auto) 53 % (31-73) 61 % (31-73) 56 % (31-73) Lymphocytes (%) (Auto) 34 % (24-48) 27 % (24-48) 31 % (24-48) Monocytes (%) (Auto) 10 % (0-9) 9 % (0-9) 10 % (0-9) Eosinophils (%) (Auto) 2 % (0-3) 2 % (0-3) 3 % (0-3) Basophils (%) (Auto) 1 % (0-3) 1 % (0-3) 1 % (0-3) Neutrophils # (Auto) 3.2 x10^3/uL (1.8-7.7) 3.2 x10^3/uL (1.8-7.7) 2.5 x10^3/uL (1.8-7.7) Lymphocytes # (Auto) 2.0 x10^3/uL (1.0-4.8) 1.4 x10^3/uL (1.0-4.8) 1.4 x10^3/uL (1.0-4.8) Monocytes # (Auto) 0.6 x10^3/uL (0.0-1.1) 0.5 x10^3/uL (0.0-1.1) 0.4 x10^3/uL (0.0-1.1) Eosinophils # (Auto) 0.1 x10^3/uL (0.0-0.7) 0.1 x10^3/uL (0.0-0.7) 0.1 x10^3/uL (0.0-0.7) Basophils # (Auto) 0.1 x10^3/uL (0.0-0.2) 0.0 x10^3/uL (0.0-0.2) 0.0 x10^3/uL (0.0-0.2) Sodium Level 139 mmol/L (136-145) 140 mmol/L (136-145) 139 mmol/L (136-145) Potassium Level 4.1 mmol/L (3.5-5.1) 3.3 mmol/L (3.5-5.1) 3.5 mmol/L (3.5-5.1) Chloride Level 103 mmol/L (98-107) 103 mmol/L (98-107) 103 mmol/L (98-107) Carbon Dioxide Level 27 mmol/L (21-32) 26 mmol/L (21-32) 24 mmol/L (21-32) Anion Gap 9 (6-14) 11 (6-14) 12 (6-14) Blood Urea Nitrogen 12 mg/dL (8-26) 10 mg/dL (8-26) 10 mg/dL (8-26) Creatinine 1.2 mg/dL (0.7-1.3) 1.1 mg/dL (0.7-1.3) 1.1 mg/dL (0.7-1.3) Estimated GFR (Cockcroft-Gault) 60.0 66.4 66.4 BUN/Creatinine Ratio 10 (6-20) Glucose Level 83 mg/dL (70-99) 95 mg/dL (70-99) 82 mg/dL (70-99) Calcium Level 8.7 mg/dL (8.5-10.1) 8.4 mg/dL (8.5-10.1) 8.8 mg/dL (8.5-10.1) Magnesium Level 2.1 mg/dL (1.8-2.4) Total Bilirubin 0.5 mg/dL (0.2-1.0) Aspartate Amino Transf (AST/SGOT) 19 U/L (15-37) Alanine Aminotransferase (ALT/SGPT) 23 U/L (16-63) Alkaline Phosphatase 84 U/L (46-116) Troponin I Quantitative < 0.017 ng/mL (0.000-0.055) Total Protein 7.4 g/dL (6.4-8.2) Albumin 3.9 g/dL (3.4-5.0) Albumin/Globulin Ratio 1.1 (1.0-1.7) Lipase 185 U/L (73-393) Urine Collection Type Unknown Urine Color Yellow Urine Clarity Clear Urine pH 6.5 (<5.0-8.0) Urine Specific [place] 1.010 (1.000-1.030) Urine Protein Negative mg/dL (NEG-TRACE) Urine Glucose (UA) Negative mg/dL (NEG) Urine Ketones (Stick) Negative mg/dL (NEG) Urine Blood Negative (NEG) Urine Nitrite Negative (NEG) Urine Bilirubin Negative (NEG) Urine Urobilinogen Dipstick 1.0 mg/dL (0.2 mg/dL) Urine Leukocyte Esterase Negative (NEG) Urine RBC 1-2 /HPF (0-2) Urine WBC 0 /HPF (0-4) Urine Bacteria 0 /HPF (0-FEW) Triglycerides Level 94 mg/dL (0-150) Cholesterol Level 157 mg/dL (0-200) LDL Cholesterol, Calculated 79 mg/dL (0-100) VLDL Cholesterol, Calculated 19 mg/dL (0-40) Non-HDL Cholesterol Calculated 98 mg/dL (0-129) HDL Cholesterol 59 mg/dL (40-60) Cholesterol/HDL Ratio 2.7 Laboratory Tests Test 05/01/20 03:45 White Blood Count 4.5 x10^3/uL (4.0-11.0) Red Blood Count 4.56 x10^6/uL (4.30-5.70) Hemoglobin 13.9 g/dL (13.0-17.5) Hematocrit 40.6 % (39.0-53.0) Mean Corpuscular Volume 89 fL (79-100) Mean Corpuscular Hemoglobin 30 pg (25-35) Mean Corpuscular Hemoglobin Concent 34 g/dL (31-37) Red Cell Distribution Width 13.5 % (11.5-14.5) Platelet Count 239 x10^3/uL (140-400) Neutrophils (%) (Auto) 56 % (31-73) Lymphocytes (%) (Auto) 31 % (24-48) Monocytes (%) (Auto) 10 % (0-9) Eosinophils (%) (Auto) 3 % (0-3) Basophils (%) (Auto) 1 % (0-3) Neutrophils # (Auto) 2.5 x10^3/uL (1.8-7.7) Lymphocytes # (Auto) 1.4 x10^3/uL (1.0-4.8) Monocytes # (Auto) 0.4 x10^3/uL (0.0-1.1) Eosinophils # (Auto) 0.1 x10^3/uL (0.0-0.7) Basophils # (Auto) 0.0 x10^3/uL (0.0-0.2) Sodium Level 139 mmol/L (136-145) Potassium Level 3.5 mmol/L (3.5-5.1) Chloride Level 103 mmol/L (98-107) Carbon Dioxide Level 24 mmol/L (21-32) Anion Gap 12 (6-14) Blood Urea Nitrogen 10 mg/dL (8-26) Creatinine 1.1 mg/dL (0.7-1.3) Estimated GFR (Cockcroft-Gault) 66.4 Glucose Level 82 mg/dL (70-99) Calcium Level 8.8 mg/dL (8.5-10.1) Triglycerides Level 94 mg/dL (0-150) Cholesterol Level 157 mg/dL (0-200) LDL Cholesterol, Calculated 79 mg/dL (0-100) VLDL Cholesterol, Calculated 19 mg/dL (0-40) Non-HDL Cholesterol Calculated 98 mg/dL (0-129) HDL Cholesterol 59 mg/dL (40-60) Cholesterol/HDL Ratio 2.7 Medications Current Medications Iohexol (Omnipaque 350 Mg/ml) 70 ml 1X ONCE IV Last administered on 04/29/20at 22:23; Start 04/29/20 at 22:30; Stop 04/29/20 at 22:31; Status DC Info (CONTRAST GIVEN -- Rx MONITORING) 1 each PRN DAILY PRN MC SEE COMMENTS; Start 04/29/20 at 22:30; Stop 05/01/20 at 22:29 Aspirin (Kaitlin Aspirin) 325 mg 1X ONCE PO Last administered on 04/29/20at 23:3 3; Start 04/29/20 at 23:30; Stop 04/29/20 at 23:31; Status DC Ondansetron HCl (Zofran) 4 mg PRN Q8HRS PRN IV NAUSEA/VOMITING; Start 04/29/20 at 23:45; Stop 04/30/20 at 23:44; Status DC Sodium Chloride 1,000 ml @ 100 mls/hr Q10H IV Last administered on 04/30/20at 12:10; Start 04/29/20 at 23:45; Stop 04/30/20 at 23:44; Status DC Acetaminophen (Tylenol) 650 mg PRN Q4HRS PRN PO FEVER > 100.3'F Last administered on 04/30/20at 19:30; Start 04/29/20 at 23:45; Stop 04/30/20 at 23:44; Status DC Potassium Chloride (Klor-Con) 40 meq 1X ONCE PO Last administered on 04/30/20at 12:36; Start 04/30/20 at 12:15; Stop 04/30/20 at 12:16; Status DC Apixaban (Eliquis) 5 mg BID PO Last administered on 05/01/20at 08:06; Start 04/30/20 at 21:00 Acetaminophen (Tylenol) 650 mg PRN Q6HRS PRN PO TEMP > 100.4F Last administered on 05/01/20at 08:07; Start 04/30/20 at 15:30 Acetaminophen (Tylenol Supp) 650 mg PRN Q4HRS PRN [place] TEMP > 100.4F; Start 04/30/20 at 15:30 Active Scripts Active Eliquis (Apixaban) 5 Mg Tablet 5 Mg PO BID Metoprolol Tartrate 25 Mg Tablet 25 Mg PO BID Reported Amlodipine Besylate 5 Mg Tablet 5 Mg PO DAILY Losartan Potassium (Losartan Potassium) 25 Mg Tablet 25 Mg PO DAILY Atorvastatin Calcium 20 Mg Tablet 20 Mg PO DAILY Vitals/I & O Vital Sign - Last 24 Hours 04/30/20 04/30/20 04/30/2004/30/20 15:16 19:25 19:52 23:04 Temp 97.8 98.5 98.6 97.8 98.5 98.6 Pulse 59 55 52 Resp 18 20 20 B/P (MAP) 144/66 (92) 166/69 (101) 157/66 (96) Pulse Ox 96 96 97 O2 Delivery Room Air Room Air Room Air Room Air 05/01/20 05/01/20 05/01/20 03:45 07:00 08:00 Temp 98.2 98.6 98.2 98.6 Pulse 52 58 Resp 21 17 B/P (MAP) 158/70 (99) 134/ Pulse Ox 95 97 O2 Delivery Room Air Room Air Room Air Intake and Output 04/30/20 04/30/20 05/01/20 15:00 23:00 07:00 Intake Total 50 ml 270 ml 190 ml Output Total 450 ml 500 ml Balance -400 ml -230 ml 190 ml Justicifation of Admission Dx: Justifications for Admission: Justification of Admission Dx: Yes Stroke - Ischemic: Stroke-Ischemic ALYSSA ASTORGA MD May 01, 2020 12:14
--- NOTE | 2020-05-01 12:23 | DS ---
DATE OF DISCHARGE: 05/01/2020 ADMISSION DIAGNOSIS: Stroke symptoms. DISCHARGE DIAGNOSIS: Resolving stroke symptoms (he did have a small infarct within the toi). HOSPITAL COURSE: The patient is a pleasant middle-aged male, who presented with stroke symptoms. He was admitted. We checked a CT of the head. Consulted Dr. Irvin. Dr. Irvin feels he probably did have a small stroke, but the symptoms have resolved. It should be noted that the patient was on anticoagulation and with Eliquis, had a recent cardioversion, which might have played a role, but we are not really sure. Nevertheless, the patient has done well. This morning, I saw him, examined him as baseline. He is moving. He is alert and oriented, wants to go home. We plan to discharge if okay with Dr. Irvin. DISPOSITION: Home. ACTIVITY: As tolerated. DIET: Low sodium. MEDICATIONS: Please see the MRAD. TOTAL TIME: 33 minutes. SHAUN LEO DO DR: RICHAR/donovan JOB#: [id number] / [id number]
--- NOTE | 2020-05-01 13:22 | RAD ---
Exam: MRI brain without contrast CLINICAL HISTORY: left weak and ataxia, poss. brainstem stroke COMPARISON: CT head 04/29/2020, CT angiogram head and neck 04/29/2020 TECHNIQUE: Multiplanar, multisequence MR imaging of the brain was performed without IV contrast.. FINDINGS: There is no evidence of intracranial hemorrhage, mass or edema. Foci of restricted diffusion are seen in the left cerebellum as well as the medial right temporal lobe as well as within the right thalamus consistent with acute infarcts. A few scattered T2/FLAIR foci of hyperintense signal and represent changes of chronic small vessel disease. The ventricles, basilar cisterns and cerebral sulci are prominent, consistent with diffuse parenchymal volume loss. There is no evidence of mass effect or shift of the midline structures. Posterior fossa structures including the cerebellum and brainstem are unremarkable. Limited imaging of the orbits demonstrates no orbital abnormality. There are normal flow voids in the arteries at the level of the [place]. IMPRESSION: Acute infarction of the left cerebellum, medial right temporal lobe and right thalamus. No evidence for associated hemorrhage. Findings of acute infarction discussed with patient's nurse Bharati Goldberg at 05/01/2020 1:09 PM. FOR INTERNAL CODING PURPOSES RESULT CODE: (C) Electronically signed by: Kostas Melton MD (05/01/2020 1:19 PM) [id number]
--- NOTE | 2020-05-01 13:29 | NUR ---
Was given MRI results from the radiologist in which I reported directly to Brandee. Pt may go home with follow up with Neuro in 4 wks. no aspirin but to continue eliquis at home. Kev Goldberg RN
--- NOTE | 2020-05-01 16:14 | NUR ---
pt was discharged home with family for self care. he was instructed to see his primary dr within one week, and the neurologist within 4 weeks of discharge home. no scripts to be given to the pt and he is to continue same home meds. he was escorted down stairs to the main entrance by Erna GARZON at 1515. Kev Goldberg RN
--- NOTE | 2020-05-02 06:15 | EKG ---
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
== END 2020-05-01 16:19 | disposition home or self-care (01) | DRG 66 ==
LOC: ER 20:33 → 6 SOUTH 04-30 00:13
PROVIDERS: ADMIT Internal Medicine; ATTEND Internal Medicine
DX: I63.531 Cerebral infarction due to unspecified occlusion or stenosis of right posterior cerebral artery (principal); E78.00 Pure hypercholesterolemia, unspecified; I10 Essential (primary) hypertension; I48.91 Unspecified atrial fibrillation; R26.0 Ataxic gait; E78.5 Hyperlipidemia, unspecified; E87.6 Hypokalemia; Z79.01 Long term (current) use of anticoagulants; Z83.3 Family history of diabetes mellitus
CPT/HCPCS: 36415; 70450; 70496; 70498; 70551; 71045; 80048; 80053; 80061; 81001; 83690; 83735; 84484; 85025; 93005; 99285; J7030; Q9967; 92610-GN; 97530-GO; G0378

== ENCOUNTER → 2020-07-29 | Outpatient (CLI) | payer MEDICARE, MEDICAID | END | disposition home or self-care (01) | LOC: LAB 15:03 | PROVIDERS: ATTEND Internal Medicine Cardiovascular Disease | DX: Z01.812 Encounter for preprocedural laboratory examination (principal); Z20.828 Contact with and (suspected) exposure to other viral communicable diseases | CPT/HCPCS: U0003-CS ==

== ENCOUNTER 2020-08-01 07:03 | Observation (INO) | payer MEDICARE, MEDICAID ==
[2020-08-01] VITALS (16 sets, daily range): BP systolic 116–160; BP diastolic 35–82
[~2020-08-01] VITALS: Ht 162.6 cm; Wt 69.5 kg
[2020-08-01] MEDS ORDERED: BACITRACIN 50,000 UNIT in IV NORMAL SALINE 250ML 250 ML IRR ONE (07:15)
[2020-08-01] MEDS ORDERED: ceFAZolin SODIUM IV Push 1 GM VIAL. IVP ONE ×3 (07:15→14:30)
[2020-08-01] MEDS ORDERED: oxyCODONE/APAP 5/325 1 TAB TABLET PO PRN ×2 (07:15→09:45)
[2020-08-01 07:29] LABS: HEMATOCRIT 43.2 % (39.0-53.0); HEMOGLOBIN 14.8 g/dL (13.0-17.5); RED BLOOD COUNT 4.88 x10^6/uL (4.30-5.70); RED CELL DISTRIBUTION WIDTH 13.9 % (11.5-14.5); WHITE BLOOD COUNT 5.6 x10^3/uL (4.0-11.0)
[2020-08-01 07:31] LABS: CALCIUM 8.8 mg/dL (8.5-10.1); CREATININE 1.1 mg/dL (0.7-1.3); GFR 66.4; POTASSIUM 3.7 mmol/L (3.5-5.1)
[2020-08-01] MEDS ORDERED: LIDOCAINE 2%/EPI 1:100,000 20 ML VIAL. ONE (07:46)
[2020-08-01] MEDS ORDERED: LOSA-73 PO (07:51)
[2020-08-01] MEDS ORDERED: fentaNYL PF VIAL 100 MCG/2 ML VIAL ONE (08:10)
[2020-08-01] MEDS ORDERED: MIDAZOLAM HCL/PF 2 MG/2 ML VIAL. ONE (08:10)
[2020-08-01] MEDS ORDERED: MIDAZOLAM HCL/PF 2 MG/2 ML VIAL. IV ONE (08:30)
[2020-08-01] MEDS ORDERED: fentaNYL PF VIAL 100 MCG/2 ML VIAL IV ONE (08:30)
[2020-08-01] MEDS ORDERED: LIDOCAINE 2%/EPI 1:100,000 20 ML VIAL. IJ ONE (08:30)
[2020-08-01 08:37] LABS: PROTHROMBIN TIME PATIENT 12.7 SEC (11.7-14.0)
[2020-08-01] MEDS ORDERED: IOHEXOL 300 MG/ML 100ML VIAL. ONE (08:55)
[2020-08-01] MEDS ORDERED: CONTRAST GIVEN. MC PRN (09:15)
[2020-08-01] MEDS ORDERED: IOHEXOL 300 MG/ML 100ML VIAL. IART ONE (09:15)
--- NOTE | 2020-08-01 09:38 | PDOC ---
MODERATE SEDATION ASSESSMENT RISKS/ALTERNATIVES Risks/Alternatives Risks and alternatives of this type of sedation and procedure discussed with: RISK/ALTERNATIVES: Patient H & P ON CHART H & P H & P on chart and reviewed for co-morbid conditions and appropriate labs. H&P ON CHART: Yes STATUS PREG STATUS ASSESSED: N/A MEDS/ALLERGIES REVIEWED Meds/Allergies Reviewed Medications and Allergies including time and route of recently administered narcotics and sedatives. MEDS/ALLERGIES REVIEWED: Yes ASA RATING ASA RATING: II AIRWAY ASSESSMENT Airway Assessment Airway patency, oral function limitations, presence of caps, crowns, dentures, partials, and ability to extend neck assessed. AIRWAY ASSESSMENT: Yes MALLAMPATI SCORE MALLAMPATI SCORE: II PRE-SEDATION ASSESSMENT PRE-SEDATION ASSESSMENT: Yes ILEANA OWEN MD Aug 01, 2020 09:38
--- NOTE | 2020-08-01 09:45 | CARD ---
MR#: [id number] Date of Study: 08/01/2020 Ordering Physician: ILEANA ROBLERO, Referring Physician: ILEANA ROBLERO, Tech: APPROVED REPORT PROCEDURES Successful implantation of Biotronik dual-chamber permanent pacemaker Sedation Time: 60 minutes Dose: 12 Gycm2 Fluoro Time: 5.3 Minutes Contrast: 20 mL Omnipaque 300 INDICATIONS Sick sinus syndrome with severe symptomatic bradycardia PROCEDURE After explaining the risks, benefits, and alternative options, informed consent was obtained from the patient. The patient was brought to the cardiac catheterization lab and the left chest and shoulder were prepp ed and draped in a sterile manner. 30 cc of 2% lidocaine was infiltrated into the skin and subcutaneous tissues for local anesthesia. A n incision was made over the left infraclavicular fossa and using blunt dissection and cautery the po cket was created. Initial attempts to obtain venous access using fluoroscopy were unsuccessful. Hen ce a venogram was obtained and using a micropuncture technique, venous access was obtained in the lef t subclavian vein and 8 and 6 [place] sheath inserted. A Biotronik bipolar active fixation right ventricular lead model Solia, serial #[id number] was advanc ed under fluoroscopy guidance and the tip was positioned in the right ventricular apex. Following th is, a Biotronik bipolar active fixation right atrial lead model Solia, serial #[id number] was positione d in the right atrial appendage under fluoroscopic guidance. The leads were secured into place and w ere attached to a Biotronik dual-chamber permanent pacemaker generator model Edora 8 DR-T, serial #[id number]. This was placed in the pocket that was subsequently closed in 3 layers. Hemostasis was secu red. The right ventricular lead showed a sensing amplitude of 13 mV, impedance of 720 ohms and a threshold of 0.4 V. The right atrial lead showed a sensing amplitude of 4.0 mV, impedance of 530 ohms and a t hreshold of 1.0 V. Patient tolerated the procedure well. There were no immediate complications. CONCLUSION Successful implantation of Biotronik dual-chamber permanent pacemaker for symptomatic sick sinus synd tamiko and severe bradycardia. Signed by : Ileana Roblero, Electronically Approved : 08/01/2020 09:44:35
--- NOTE | 2020-08-01 10:13 | RAD ---
Examination: PORTABLE CHEST 1V History: Post pacemaker Comparison/Correlation: 04/29/2020 portable chest x-ray exam Findings: Portable upright frontal view of the chest was obtained. Dual-lead left-sided pacemaker is present. Leads are in place and intact on the frontal view provided. Heart size is normal. No infiltrate or pleural effusion. No pneumothorax. Bony structures are grossly unremarkable. Impression: Interval pacemaker placement. No pneumothorax. Electronically signed by: Eugene Barragan MD (08/01/2020 10:10 AM) [id number]
[2020-08-01] MEDS: LOSARTAN POTASSIUM 50 MG TABLET. PO SCH (13:01)
[2020-08-01] MEDS: amLODIPine BESYLATE 5 MG TABLET PO SCH (13:01)
[2020-08-01] MEDS: METOPROLOL TART IMMED RELEASE 25 MG TABLET. PO SCH ×2 (13:03→21:54)
--- NOTE | 2020-08-01 16:13 | EKG ---
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
[2020-08-01] MEDS ORDERED: ATORVASTATIN CALCIUM 20 MG TABLET PO SCH (21:00)
[2020-08-02 03:10] VITALS: BP 138/74
[2020-08-02 07:00] VITALS: BP 116/68
[2020-08-02] MEDS: METOPROLOL TART IMMED RELEASE 25 MG TABLET. PO SCH (08:55)
[2020-08-02] MEDS: LOSARTAN POTASSIUM 50 MG TABLET. PO SCH (08:55)
[2020-08-02] MEDS: amLODIPine BESYLATE 5 MG TABLET PO SCH (08:56)
--- NOTE | 2020-08-02 10:55 | NUR ---
SS following for discharge planning. SS reviewed pt chart and discussed with pt RN. Pt is from home with spouse and is currently on room air. Cardiology following. Discharge plan is to home when medically ready. SS will continue to follow for discharge planning.
[2020-08-02 11:00] VITALS: BP 92/59
[2020-08-02] MEDS ORDERED: METO25TA4 PO (11:53)
--- NOTE | 2020-08-02 11:56 | DISCH ---
DISCHARGE INSTRUCTIONS Condition on Discharge Condition on Discharge: Stable Activity After Discharge Activity Instructions for Disc: Activity as tolerated (left arm immobilizer. ) Bathing Instructions: Shower-keep dressing dry Exercise Instruction after Dis: Progress as tolerated Weight Bearing Status after Di: As tolerated Diet after Discharge Diet after Discharge: Cardiac Diet Texture: Regular Swallowing Supervision: None needed Wound Incision Care Wound/Incision Care: Other, see below (See diagnosis specific instructions ) Checks after Discharge Checks after discharge: Check blood press - daily Contacting the DR. after DC Call your doctor for: Concerns you may have Treatment/Equipment after DC Adaptive Equipment Issued: None AGUS HINES APRN Aug 02, 2020 11:56
--- NOTE | 2020-08-02 12:48 | RAD ---
CHEST PA LATERAL History: Reason: 1 day post pacemaker implantation / Comparison: 08/01/2020 portable chest x-ray exam. Findings: Frontal and lateral views of the chest were obtained. Dual-lead left-sided pacemaker is present. One of the leads terminates within the right atrial appendage on the lead terminates within the right ventricle. The cardiomediastinal silhouette is normal. Pulmonary vasculature is normal. Borderline pulmonary hyperinflation. The lungs are clear. No pleural effusion or pneumothorax is seen. There is no acute bone abnormality. IMPRESSION: No acute cardiopulmonary process. Pacemaker leads are intact and in place. Electronically signed by: Eugene Barragan MD (08/02/2020 12:44 PM) [id number]
--- NOTE | 2020-08-02 13:59 | PDOC3 ---
Discharge Summary Visit Information Date of Admission: Aug 01, 2020 Date of Discharge: Aug 02, 2020 Admitting Diagnosis Comment: SSS, tachybrady PAFIB Hyperlipidemia Final Diagnosis SSS, tahcy-george PAFIB Hypertension Hyperlipidemia Brief Hospital Course Allergies Allergies Coded Allergies Type Severity Reaction Last Updated Verified No Known Drug Allergies 04/27/20 No Vital Signs Vital Signs Date Time Temp Pulse Resp B/P (MAP) Pulse Ox O2 Delivery O2 Flow Rate FiO2 08/02/20 11:00 97.9 65 21 92/59 (70) 93 Room Air 97.9 08/01/20 09:41 2.0 Lab Results Laboratory Tests Test 08/01/20 07:17 White Blood Count 5.6 x10^3/uL (4.0-11.0) Red Blood Count 4.88 x10^6/uL (4.30-5.70) Hemoglobin 14.8 g/dL (13.0-17.5) Hematocrit 43.2 % (39.0-53.0) Mean Corpuscular Volume 88 fL (79-100) Mean Corpuscular Hemoglobin 30 pg (25-35) Mean Corpuscular Hemoglobin Concent 34 g/dL (31-37) Red Cell Distribution Width 13.9 % (11.5-14.5) Platelet Count 239 x10^3/uL (140-400) Prothrombin Time 12.7 SEC (11.7-14.0) Prothromb Time International Ratio 1.0 (0.8-1.1) Sodium Level 139 mmol/L (136-145) Potassium Level 3.7 mmol/L (3.5-5.1) Chloride Level 102 mmol/L (98-107) Carbon Dioxide Level 28 mmol/L (21-32) Anion Gap 9 (6-14) Blood Urea Nitrogen 14 mg/dL (8-26) Creatinine 1.1 mg/dL (0.7-1.3) Estimated GFR (Cockcroft-Gault) 66.4 Glucose Level 92 mg/dL (70-99) Calcium Level 8.8 mg/dL (8.5-10.1) Brief Hospital Course Mr. Cantu is a 70 old male who presented secondary to sick sinus syndrome with severe symptomatic bradycardia. Patient underwent successful implantation of Biotronik dual-chamber permanent pacemaker. Tolerated procedure well and was monitored overnight without cute complications. Metoprolol was resumed. Post-op CXR and device check WNL. Left are immobilizer intact. Left chest PPM insertion site soft, clean, and dry. Incision well-approximated. Steri strips intact. Discharge instructions were reviewed via human resources clerk phone as patient is Stateless speaking only. Patient, , and daughter verbalized an understanding. Discharge Information Condition at Discharge: Improved Follow Up: Weeks (2 weeks for wound check with RN) Disposition/Orders: D/C to Home Scheduled Apixaban (Eliquis) 5 Mg Tablet, 5 MG PO BID for a fib, #60 Prescribed by: DEE DEE ALVA on 10/08/19 1141 Last Taken: Unknown Dose on 07/29/20 Last Action: Reviewed on 08/01/20 0751 by KATHERINE RUSHING Atorvastatin Calcium (Atorvastatin Calcium) 20 Mg Tablet, 20 MG PO DAILY for FOR CHOLESTEROL, #30 Ref 0 (Reported) Entered as Reported by: VERONA CASTELLANOS on 10/08/19 0548 Last Action: Continued on 08/01/20 110 by AGUS HINES APRN Losartan Potassium (Losartan Potassium) 50 Mg Tablet, 50 MG PO DAILY for HYPERTENSION, (Reported) Entered as Reported by: KATHERINE RUSHING on 08/01/20 0751 Last Taken: Unknown Dose on 08/01/20 Last Action: Continued on 08/01/20 110 by AGUS HINES APRN Metoprolol Tartrate (Metoprolol Tartrate) 25 Mg Tablet, 25 MG PO BID for heart rate control for 30 Days, #60 Ref 2 Prescribed by: AGUS HINES APRN on 08/02/20 1153 Discontinued Medications Amlodipine Besylate (Amlodipine Besylate) 5 Mg Tablet, 5 MG PO DAILY for HTN, (Reported) Entered as Reported by: BELKIS YOUNG on 04/26/20 1524 Last Taken: Unknown Dose on 08/01/20 Last Action: Continued on 08/01/20 110 by AGUS HINES APRN Patient Instructions Patient Instructions Must know & what to expect after device implant: 1. Your surgical dressing should be removed prior to discharge from the hospital, but allow the steri- strips to fall off naturally. 2. Activity restrictions: DO NOT raise arm above shoulder level, lift anything heavier than a gallon of milk, and no push or pull motions such as vacuuming/lawn mowing, no swinging motions (golf), etc for 4 weeks. 3. It is OK to use a cell phone or other electronic devices just be sure you do not store it in a breast pocket on the side where the device was placed. 4. Device will be interrogated prior to your discharge from the hospital and then every 3 months for defibrillators and every 6 months for pacemakers. You may be asked to have your device checked remotely from home as well, but this will depend on your particular physicians preference. 5. You may remove the arm immobilizer the day after device placement. Wear the arm immobilizer/splint at night (during sleep times) for 2 week to prevent unintended arm movement that can cause lead dislodgement. 6. Do not drive for one week as the task of driving may lead to unintended arm motion that may cause lead dislodgement. The seatbelt will also rub against the incision site & cause irritation. 7. It is our recommendation that you utilize Tylenol at home for pain control. You need to call our office if you are having uncontrollable pain at the incision site. 8. Keep your incision clean and dry. It is OK to shower. DO NOT submerge in bath, pool, or hot tub, until cleared by your doctor, as this could lead to increase risk of infection.. It is OK to use regular soap just do not scrub the incision site. Water spray from shower should not directly hit the incision. Be sure to blot dry not rub. 9. Inspect your incision daily. If you notice any increased redness, swelling, or drainage, or if you start running a fever, call the office immediately. The number is [phone]. 10. For women, if you need to protect against irritation from the bra straps, you can place a piece of gauze over the incision site for cushion. Please be sure to tape it loosely to allow air to the site & remove the gauze when you remove the bra. 11. Be sure to carry your device identification information card in your wallet/purse at all times. 12. It is OK to go through security at the airport with your device, but be sure to let the TSA know prior to proceeding as the security settings change depending on varying factors. Please do whatever is requested by security at that time. 13. Some of the newer devices may be MRI compatible but, currently, the use of these devices is not widespread, so you likely will not be able to have an MRI. Please clarify this with your physician. Special instructions for defibrillator patients: If your device recognizes a rhythm that requires treatment with a shock, you will most likely feel the shock. This is usually not a subtle feeling and it is uncomfortable. Please follow these steps if you receive a shock: Call the office if you receive one shock. Go to the emergency room if you receive two consecutive shocks- please have someone drive you & call 911 if nobody is available- DO NOT drive yourself. Call 911 if you receive more than 2 consecutive shocks. If at any time, you feel lightheaded or dizzy/faint, stop what you are doing & lie down immediately. If you are driving, get to the side of the road quickly, turn your car off & call 911 on your cell phone. DO NOT continue to drive as this may cause an accident that seriously injures yourself &/or others. Call the office at [phone] for any questions or concerns. Justicifation of Admission Dx: Justifications for Admission: Justification of Admission Dx: Yes Stroke - Ischemic: Stroke-Ischemic AGUS HINES APRN Aug 02, 2020 13:59
--- NOTE | 2020-08-02 14:00 | NUR ---
Discharge: Teaching verbal and written. Reviewed follow-up, medications, pacemaker, precautions, ect. Patient Czech speaking. Blue phonograph mechanic phone used #[phone]. Patient wanted me to review his discharge with daughter in law. Patient and daughter in law verbalized understanding. All belongings with patient. IV removed without complications, catheter tip in-tact. Patient ambulated off of unit with , daughter in law and nurse
== END 2020-08-02 13:55 | disposition home or self-care (01) ==
LOC: CCL 07:03 → 2 NORTH 08:00
PROVIDERS: ADMIT Internal Medicine Cardiovascular Disease; ATTEND Internal Medicine Cardiovascular Disease
DX: I49.5 Sick sinus syndrome (principal); I10 Essential (primary) hypertension; I48.0 Paroxysmal atrial fibrillation; E78.5 Hyperlipidemia, unspecified
CPT/HCPCS: 33208; 36415; 71045; 71046; 75820; 80048; 85027; 85610; 93005; 96374; 96375; 99152; 99153; C1785; C1898; G0378; G0379; J0690; J2250; J3010; J3490; J7050; Q9967; J7030

== ENCOUNTER → 2021-02-08 | Outpatient (CLI) | payer MEDICARE, MEDICAID ==
[2020-05-01 11:00] VITALS: BP_DIAS 59
[2020-08-02 11:00] VITALS: BP_SYST 92
[~2021-02-08] MED LIST changes: +AMLO-186 PO; -AMLO5TAB10 PO; +LOSA-73 PO
--- NOTE | 2021-02-08 15:44 | CARD ---
MR#: [id number] Date of Study: 02/08/2021 Ordering Physician: ILEANA OWEN, Referring Physician: ILEANA OWEN, Tech: Chelsea Og WENDY APPROVED REPORT EXAM: Two-dimensional and M-mode echocardiogram with Doppler and color Doppler. Other Information Quality : Good INDICATION Sick Sinus Syndrome-Pacemaker Implantation 08/01/20 2D DIMENSIONS RVDd2.8 (2.9-3.5cm)Left Atrium(2D)4.4 (1.6-4.0cm) IVSd1.0 (0.7-1.1cm)Aortic Root(2D)3.1 (2.0-3.7cm) LVDd5.5 (3.9-5.9cm)LVOT Diameter2.1 (1.8-2.4cm) PWd1.0 (0.7-1.1cm)LVDs2.9 (2.5-4.0cm) FS (%) 30.0 %SV114.5 ml LVEF(%)60.0 (>50%) Aortic Valve AoV Peak Toi.143.4cm/sAoV VTI28.0cm AO Peak GR.8.2mmHgLVOT Peak Toi.135.7cm/s LVOT VTI 26.59cmAO Mean GR.4mmHg SARAY (VMAX)3.97yl5GIT (VTI)3.13cm2 AI P 1/2 Cowc822ve Mitral Valve MV E Wvdsreek38.2cm/sMV DECEL DPQE997nf MV A Mzxprhlc59.3cm/sMV AGB17yc E/A Ratio0.9MVA (PHT)3.17cm2 Tricuspid Valve TR P. Igonpbuz825ak/sRAP PXWYRHXQ6irUq TR Peak Gr.69imRyOSGP03nlGg LEFT VENTRICLE The left ventricle is normal size. There is normal left ventricular wall thickness. The left ventricu lar systolic function is normal. The Ejection Fraction is 55-60%. There is normal LV segmental wall m otion. Transmitral Doppler flow pattern is Grade I-abnormal relaxation pattern. RIGHT VENTRICLE The right ventricle is normal size. The right ventricular systolic function is normal. There is a pac emaker lead in the right ventricle. ATRIA The left atrium is mildly dilated. The right atrium size is normal. A pacemaker is seen in the right atrium consistent with history. The interatrial septum is intact with no evidence for an atrial septa l defect or patent foramen ovale as noted on 2-D or Doppler imaging. AORTIC VALVE The aortic valve is calcified but opens well. Doppler and Color Flow revealed mild aortic regurgitati on. There is no significant aortic valvular stenosis. MITRAL VALVE The mitral valve is calcified but opens well. There is no evidence of mitral valve prolapse. There is no mitral valve stenosis. Doppler and Color-flow revealed mild mitral regurgitation. TRICUSPID VALVE The tricuspid valve is normal in structure and function. Doppler and Color Flow revealed trace to mil d tricuspid regurgitation. There is mild pulmonary hypertension. The PA pressure was estimated at 37 mmHg. There is no tricuspid valve stenosis. PULMONIC VALVE The pulmonic valve is not well visualized. Doppler and Color Flow revealed trace to mild pulmonic dk vular regurgitation. There is no pulmonic valvular stenosis. GREAT VESSELS The aortic root is normal in size. The ascending aorta is normal in size. The IVC is normal in size a nd collapses >50% with inspiration. PERICARDIAL EFFUSION There is no evidence of significant pericardial effusion. Critical Notification Critical Value: No <Conclusion> The left ventricular systolic function is normal. The Ejection Fraction is 55-60%. There is normal LV segmental wall motion. Transmitral Doppler flow pattern is Grade I-abnormal relaxation pattern. Pacer lead noted RA/RV. Mild aortic regurgitation. Mild mitral regurgitation. Trace to mild tricuspid regurgitation. The PA pressure was estimated at 37 mmHg. There is no evidence of significant pericardial effusion. Signed by : Ileana Owen, Electronically Approved : 02/08/2021 15:44:17
== END ==
LOC: ECHO 14:45
PROVIDERS: ATTEND Internal Medicine Cardiovascular Disease
DX: I08.8 Other rheumatic multiple valve diseases (principal); I48.91 Unspecified atrial fibrillation; Z95.0 Presence of cardiac pacemaker
CPT/HCPCS: 93306

== ENCOUNTER → 2021-08-16 | Outpatient (CLI) | payer MEDICARE, MEDICAID ==
--- NOTE | 2021-08-17 16:31 | CARD ---
MR#: [id number] Date of Study: 08/16/2021 Ordering Physician: ILEANA OWEN, Referring Physician: ILEANA OWEN, Tech: Arminda Garza [facility] APPROVED REPORT EXAM: Two-dimensional and M-mode echocardiogram with Doppler and color Doppler. Other Information Quality : AverageHR: 78bpm INDICATION Atrial Fibrillation Surgery/Intervention Pacemaker: Date: 2019 2D DIMENSIONS IVSd1.2 (0.7-1.1cm)Aortic Root(2D)3.1 (2.0-3.7cm) LVDd5.0 (3.9-5.9cm)LVOT Diameter2.1 (1.8-2.4cm) PWd1.2 (0.7-1.1cm) Aortic Valve AoV Peak Toi.152.5cm/sAoV VTI28.7cm AO Peak GR.9.3mmHgLVOT Peak Toi.101.9cm/s LVOT VTI 21.14cmAO Mean GR.5mmHg SARAY (VMAX)1.99mq2AVA (VTI)2.52cm2 Mitral Valve MV E Spesrcyb98.9cm/sMV DECEL UPRW234go MV A Mujvqcah75.7cm/sMV E Mean Gr.1mmHg MV XIT069hyU/A Ratio0.7 MVA (PHT)2.17cm2 TDI E/Lateral E'3.9E/Medial E'7.2 Pulmonary Valve PV Peak Ppziozfp848.2cm/sPV Peak Grad.4mmHg Tricuspid Valve TR P. Gtiasbtz081dy/sRAP IHSKTHYC9rqVx TR Peak Gr.07lzFqQDCH92uwQy Pulmonary Vein S1 Dfdhpnzc35.8cm/sD2 Fzkolhlj66.9cm/s PVa [id number] LEFT VENTRICLE The left ventricle is normal size. There is mild concentric left ventricular hypertrophy. The left ve ntricular systolic function is normal and the ejection fraction is within normal range. The Ejection Fraction is 55-60%. There is normal LV segmental wall motion. Transmitral Doppler flow pattern is Gra de I-abnormal relaxation pattern. RIGHT VENTRICLE The right ventricle is normal size. There is normal right ventricular wall thickness. The right ventr icular systolic function is normal. There is a pacemaker lead in the right ventricle. ATRIA The left atrium is borderline dilated. The right atrium is borderline dilated. The interatrial septum is intact with no evidence for an atrial septal defect or patent foramen ovale as noted on 2-D or Do ppler imaging. AORTIC VALVE The aortic valve is normal in structure and function. Doppler and Color Flow revealed trace aortic re gurgitation. There is no significant aortic valvular stenosis. Calculated aortic valve area is 2.71 c m2 with maximum pressure gradient of 11 mmHg and mean pressure gradient of 6 mmHg. MITRAL VALVE The mitral valve is normal in structure and function. There is no evidence of mitral valve prolapse. There is no mitral valve stenosis. Doppler and Color-flow revealed trace mitral regurgitation. TRICUSPID VALVE The tricuspid valve is normal in structure and function. Doppler and Color Flow revealed trace to mil d tricuspid regurgitation with an estimated PAP of 37 mmHg. There is no tricuspid valve stenosis. PULMONIC VALVE The pulmonary valve is normal in structure and function. Doppler and Color Flow revealed trace pulmon ic valvular regurgitation. GREAT VESSELS The aortic root is normal in size. The IVC is dilated. PERICARDIAL EFFUSION There is no evidence of significant pericardial effusion. Critical Notification Critical Value: No <Conclusion> The left ventricle is normal size. The left ventricular systolic function is normal and the ejection fraction is within normal range. The Ejection Fraction is 55-60%. There is mild concentric left ventricular hypertrophy. Doppler and Color Flow revealed trace aortic regurgitation. There is no significant aortic valvular stenosis. Doppler and Color-flow revealed trace mitral regurgitation. Doppler and Color Flow revealed trace to mild tricuspid regurgitation with an estimated PAP of 37 mmH g. Signed by : Jose David Parker MD Electronically Approved : 08/17/2021 16:30:42
== END ==
LOC: ECHO 14:00
PROVIDERS: ATTEND Internal Medicine Cardiovascular Disease
DX: I36.1 Nonrheumatic tricuspid (valve) insufficiency (principal); I51.7 Cardiomegaly; I48.91 Unspecified atrial fibrillation
CPT/HCPCS: 93306